=== PATIENT | female | born 1975 | race Caucasian/White ===

== ENCOUNTER → 2023-09-08 | Outpatient (CLI) | payer OTHER, SELFPAY ==
[2023-09-08 09:07] LABS: Absolute Lymphocyte Count 2.65 X10^3/uL (0.83-4.51); Basophil# 0.09 X10^3/uL; Basophil% 1.4 % (0-1); Eosinophil# 0.13 X10^3/uL; Hemoglobin 12.9 g/dL (12.0-15.0); Lymphocyte # 2.65 X10^3/ul (0.83-4.51); Lymphocyte % 41.4 % (19-41); Mean Corp Hgb Conc 32.3 g/dL (32-36); Mean Corpuscular Volume 89.9 fL (81-99); Mean Platelet Vol. 10.2 fl (6.2-12.0); Monocyte% 7.8 % (0-10); NRBC Flagged by Analyzer 0 % (0-5); Neutrophil # 3.02 X10^3/uL (2.7-7.7); Neutrophil % 47.2 % (47-70); Platelet Count 321 K/mm3 (150-450); RBC Distribution Width CV 11.9 % (11.6-14.6); RBC Distribution Width SD 39.4 fl (35.1-43.9); Red Blood Count 4.45 M/mm3 (4.2-5.4); White Blood Count 6.4 K/mm3 (4.4-11.0)
[2023-09-08 09:39] LABS: Thyroid Stim Hormone (TSH) 1.41 uIU/mL (0.358-3.74)
== END | disposition home or self-care (01) ==
PROVIDERS: Referring Provider Obstetrics & Gynecology; Visit Provider Obstetrics & Gynecology
DX: Z13.29 Encounter for screening for other suspected endocrine disorder (principal); N93.9 Abnormal uterine and vaginal bleeding, unspecified
CPT/HCPCS: 36415; 84443; 85025

== ENCOUNTER → 2023-09-09 | Outpatient (CLI) | payer OTHER, SELFPAY ==
--- NOTE | 2023-09-09 12:53 | US_ITS ---
STUDY: ULTRASOUND OF THE FEMALE PELVIS - COMPLETE REASON FOR EXAM: Female, 48 years old. AUB LMP: August 20, 2023. TECHNIQUE: Transabdominal and Transvaginal TECHNICAL QUALITY: Adequate. COMPARISON: None. FINDINGS: The uterus is anteverted and is in a midline position. The uterus measures 9.5 cm x 5.5 cm x 4.6 cm. Normal uterine cervix. The endometrium measures 7.1 mm in thickness, and is hyperechoic. There is no demonstrated endometrial mass. The myometrium is of heterogeneous echotexture suggesting fibroid change although no focal fibroid is seen. I.U.D. - The patient does not have an I.U.D. The right ovary is visualized. The right ovary measures 2.4 cm x 2.2 cm x 1.7 cm. There is no right ovarian cyst or ovarian mass. There is no visualized right adnexal mass or complex lesion. There is normal arterial and normal venous vascularity. The left ovary is visualized. The left ovary measures 2.8 cm x 2.7 cm x 2.5 cm. There is a 2.4 cm x 2.3 cm x 2.2 cm simple cyst in the ovary. There is no visualized left adnexal mass or complex lesion. There is normal arterial and normal venous vascularity. There is no fluid in the cul-de-sac. US/Transvaginal Non- IMPRESSION: Heterogeneous appearance of the myometrium suggestive of fibroid change although no focal fibroid is seen. 2.4 cm x 2.3 cm x 2.2 cm left ovarian cyst. Electronically Signed: Robin Mckeon MD at 15:26 EST ,
== END | disposition home or self-care (01) ==
PROVIDERS: Referring Provider Obstetrics & Gynecology; Visit Provider Obstetrics & Gynecology
DX: N93.9 Abnormal uterine and vaginal bleeding, unspecified (principal)
CPT/HCPCS: 76830; 76856

== ENCOUNTER → 2023-09-21 | Outpatient (CLI) | payer OTHER, SELFPAY ==
--- NOTE | 2023-09-21 11:02 | EMB_PTH ---
PATHOLOGY RESULTS PATIENT: STEVEN REAL LOC: [facility] U#:[id number] AGE/SX: 48/F ROOM: RE09/21/[address]: Dr. Gay Mcfarlane MD : 1975 BED: DIS: 09/21/2023 SPEC #: [id number] RECD: 09/22/23 08:30 STATUS: KARLA SAMAN #: [id number] FRED: 09/21/23 11:[address]: Gay Mcfarlane DEPT: SURGICAL PATHOLOGY RECD BY: Courtney Judge ENTERED: 09/22/23 08:30 SP TYPE: ENDOM BX/C TESSA DR: No Primary Care Phys Tissues: Endometrium, NOS Procedures: Surgery Specimen Level IV HEADER OPERATION: Endometrial biopsy PRE-OP DIAGNOSIS: Abnormal uterine bleeding TISSUE SUBMITTED: Endometrial lining MICROSCOPIC DIAGNOSIS Endometrium, biopsy: Weakly proliferative to inactive endometrium. AM:dimple 09/23/2023 MICROSCOPIC DESCRIPTION Slides are reviewed. GROSS DESCRIPTION Received is one container labeled with the patient's name and not further designated. The specimen consists of multiple irregular fragments of wolff mucoid tissue mixed with blood clot that in aggregate measure 3.0 x 2.5 x 0.3 cm. The specimen is totally submitted in one cassette. / SJ:dimple 09/22/2023 TC:5 CPT: 71721
--- OUTSIDE RECORDS SUMMARY | 2023-09-21 17:42 | XMS RPT_ITS | CCD ---
Author Name Unknown Address [address] [place] [address] Organization [facility] Care Team Providers Care Forklift Driver Name Role Phone Frida Artis Unavailable Unavailable Frida Artis Unavailable Unavailable Pj, Mohini D Unavailable Unavailable Frida Artis Unavailable Unavailable Wake, Mohini D Unavailable Unavailable Wake, Mohini D Unavailable Unavailable Pj, Mohini D Unavailable Unavailable Pj, Mohini D Unavailable Unavailable Pj, Mohini D Unavailable Unavailable Wake, Mohini D Unavailable Unavailable Pj, Mohini D Unavailable Unavailable Wake, Mohini D Unavailable Unavailable Pj, Mohini D Unavailable Unavailable Pj, Mohini D Unavailable Unavailable Dew, Sergio Unavailable Unavailable Pj, Mohini D Unavailable Unavailable Trung, Bull L Unavailable Unavailable Pj, Mohini D Unavailable Unavailable Unavailable Unavailable Dew WATER TAXI DRIVER, Sergio Unavailable Unavailable Pj, Mohini D Unavailable Unavailable Trung, Bull L Unavailable Unavailable Luecht PT, Misha Unavailable Unavailable Bowling WATER TAXI DRIVER, Juan Unavailable Unavailable Unavailable Unavailable Wake, Mohini D Unavailable Yahaira Mixon Unavailable Dr. Connie Etienne Referring Unavailable Oral Eve Clark Primary Care Unavailable Lowell, Dr. Rosales Admitting Unavailable Sippey, Dr. Rosales Attending Unavailable Pj, Ms. Mohini D Primary Care Unavailable Frida Artis Attending Unavailable Frida Artis Referring Unavailable Unavailable Unavailable Oral Eve Clark Primary Care Unavailable FRIDA ARTIS Referring Unavailable FRIDA ARTIS Attending Unavailable Oral Eve Clark Primary Care Unavailable Oral Eve Clark Referring Unavailable Oral Eve Clark Attending Unavailable Oral, Eve Yahairajenn Clark Primary Care Unavailable FRIDA ARTIS Attending Unavailable Allergies Allergy Classification Reported Allergen(s) Allergy Type Date of Onset Reaction(s) Facility Macrolides (antibiotic) (1 source) Erythromycin; Translations: [erythromycin] Drug Allergy Gatrointestinal upset [address] Work Phone: (18 sources) Erythromycin; Translations: [erythromycin] Drug Allergy Gatrointestinal upset [facility] Repository (1 source) No Known Medication Allergies; Translations: [No Known Medication Allergies] Propensity to adverse reactions to drug (disorder) [facility] Repository Medications Completed/Discontinued Medications Medication Drug Class(es) Dates Sig (Normalized) Sig (Original) drospirenone / Ethinyl Estradiol (14 sources) Progestin, Estrogen Start: 04-14-2021 take 1 tablet by mouth once daily Drospirenone-Ethi nyl Estradiol 3-0.03 MG Oral Tablet TAKE 1 TABLET DAILY. 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; Translations: [Other specified congenital malformations of intestine] Onset: 08-24-2022 Chronic Menstrual disorders (14 sources) Menometrorrhagia; Translations: [Excessive or frequent menstruation] Chronic Other non-traumatic joint disorders (16 sources) Shoulder pain; Translations: [Pain in joint, shoulder region] Episodic Other non-traumatic joint disorders (2 sources) Pain in right shoulder; Translations: [Right shoulder pain] Episodic Other and delivery including normal (13 sources) Delivery normal; Translations: [Normal delivery] Episodic Past or Other Problems Problem Classification Problem Date Documented Da te Episodic/Chronic Residual codes; unclassified (1 source) Family history of malignant neoplasm of digestive organs; Translations: [Family history of malignant neoplasm of digestive organs] Onset: 08-24-2022 Episodic Unclassified (13 sources) Finding of menstrual bleeding; Translations: [Menstruation] Results Test Name Value Interpretation Reference Range Facil ity Vital Signs Date Time Vital Sign Value Performing Clinician Dean lester 06-07-2023 08:31-0400 Body height 167.64 cm Yahaira Mixon Work Phone: [address] Work Phone: 06-07-2023 08:31-0400 Body mass index (BMI) [Ratio] 26.95 kg/m2 Yahaira Mixon Work Phone: [address] Work Phone: 06-07-2023 08:31-0400 Body surface area Derived from formula 1.85 m2 Yahaira Mixon Work Phone: [address] Work Phone: 06-07-2023 08:31-0400 Body weight 75.75 kg Yahaira Mixon Work Phone: [address] Work Phone: 06-07-2023 08:31-0400 Diastolic blood pressure 72 mm[Hg] Yahaira Mixon Work Phone: [address] Work Phone: 06-07-2023 08:31-0400 Systolic blood pressure 124 mm[Hg] Yahaira Mixon Work Phone: [address] Work Phone: 07-22-2022 08:36-0400 Body height 167.64 cm Yahaira Mixon Work Phone: [facility] 205 DO Work Phone: 07-22-2022 08:36-0400 Body mass index (BMI) [Ratio] 24.89 kg/m2 Yahaira Mixon Work Phone: [facility] 205 DO Work Phone: 07-22-2022 08:36-0400 Body surface area Derived from formula 1.79 m2 Yahaira Mixon Work Phone: [facility] 205 DO Work Phone: 07-22-2022 08:36-0400 Body weight 69.94 kg Yahaira Mixon Work Phone: [facility] 205 DO Work Phone: 07-22-2022 08:36-0400 Diastolic blood pressure 60 mm[Hg] Yahaira Mixon Work Phone: [facility] 205 DO Work Phone: 07-22-2022 08:36-0400 Heart rate 70 /min Yahaira Mixon Work Phone: [facility] 205 DO Work Phone: 07-22-2022 08:36-0400 SaO2% (BldA) [Mass fraction] 99 % Yahaira Mixon Work Phone: [facility] 205 DO Work Phone: 07-22-2022 08:36-0400 Systolic blood pressure 100 mm[Hg] Yahaira Mixon Work Phone: [facility] 205 DO Work Phone: 05-26-2022 13:58-0400 Body height 167.64 cm Mohini Oliva Work Phone: [place] [address] [employer] Work Phone: 05-26-2022 13:58-0400 Body mass index (BMI) [Ratio] 24.73 kg/m2 Mohini Starks Pj Work Phone: [place] [address] [employer] Work Phone: 05-26-2022 13:58-0400 Body surface area Derived from formula 1.79 m2 Mohini Mancinitie Work Phone: [place] [address] [employer] Work Phone: 05-26-2022 13:58-0400 Body weight 69.5 kg Mohini Oliva Work Phone: Ernie [place] Work Phone: 05-26-2022 13:58-0400 Diastolic blood pressure 66 mm[Hg] Mohini Oliva Work Phone: Ernie [place] Work Phone: 05-26-2022 13:58-0400 Systolic blood pressure 116 mm[Hg] Mohini Oliva Work Phone: Ernie [place] Work Phone: 05-23-2021 11:03-0400 Body height 167.64 cm Mohini Modi [place] Work Phone: 05-23-2021 11:03-0400 Body mass index (BMI) [Ratio] 25.37 kg/m2 [facility] [place] Work Phone: 05-23-2021 11:03-0400 Body surface area Derived from formula 1.81 m2 [facility] [place] [place] Work Phone: 05-23-2021 11:03-0400 Body temperature 96.9 [degF] [facility] [place] Work Phone: 05-23-2021 11:03-0400 Body weight 71.3 kg Mohini Liang [place] Work Phone: 05-23-2021 11:03-0400 Diastolic blood pressure 68 mm[Hg] [facility] [place] Work Phone: 05-23-2021 11:03-0400 Systolic blood pressure 112 mm[Hg] [facility]ini [facility]iva [facility] [place] Work Phone: 04-04-2020 17:39-0400 BMI (Body Mass Index) 27.6 kg/m2 Sergio MULLEN [facility] Work Phone: 04-04-2020 17:39-0400 Body Temperature 98.6 [degF] [facility] Work Phone: 04-04-2020 17:39-0400 Body weight 77.56 [facility] Work Phone: 04-04-2020 17:39-0400 BP Diastolic 72 mm[Hg] [facility] Work Phone: Encounters Encounter Date Encounter Type Care Provider Facility Start: 06-07-2023 Periodic preventive med est patient 40-64yrs Yahaira K Oral [facility] Work Phone: Start: 06-07-2023 ambulatory Ms. Yahaira Mixon Fac ility:[facility] Start: 04-19-2023 AUDIT Yahaira John Oral [facility] Work Phone: Start: 08-24-2022 End: 08-24-[address] Connie Etienne Facility:[id number] Start: 07-23-2022 Chart Update Yahaira John Oral Work Phone: [facility] 205 DO Work Phone: Start: 07-22-2022 Periodic preventive med est patient 40-64yrs Yahaira Lopez Oral Work Phone: [facility] 205 DO Work Phone: Start: 07-22-2022 ambulatory Ms. Yahaira Mixon Fac ility:[id number] Start: 06-05-2022 Chart Update Mohini george Work Phone: [facility] Work Phone: Start: 06-02-2022 Chart Update Mohini george Work Phone: [facility] [address] [place] Work Phone: Start: 06-01-2022 ambulatory Ms. Mohini Oliva Fac ility:[id number] Start: 05-26-2022 Periodic preventive med est patient 40-64yrs Mohini Oliva Work Phone: [facility] [address] [place] Work Phone: Start: 03-30-2022 AUDIT Mohini george Work Phone: [facility] [address] [place] Work Phone: Start: 12-16-2021 Image Encounter Mohini Oliva kekez D O NOT USE - [facility] Only Start: 06-02-2021 Chart Update Mohini Oliva [facility] [address] [place] Work Phone: Start: 05-30-2021 Chart Update Mohini Oliva [facility] [address] [place] Work Phone: Start: 05-28-2021 AUDIT Mohini Oliva [facility] [address] [place] Work Phone: Start: 05-23-2021 Periodic preventive med est patient 40-64yrs Mohini Oliva [facility] [address] [place] Work Phone: Start: 04-14-2021 AUDIT Mohini Oliva [facility] [address] [place] Work Phone: Start: 06-06-2020 Patient encounter procedure Juan Austin WATER TAXI DRIVER [facility] Work Phone: Start: 06-05-2020 Patient encounter procedure Juan Austin WATER TAXI DRIVER [facility] Work Phone: Start: 05-31-2020 Patient encounter [facility] Work Phone: Start: 05-29-2020 Patient encounter procedure Misha Rodriguez PT [facility] [place] Work Phone: Start: 05-22-2020 Patient encounter procedure Misha Newsomet PT [facility] [place] Work Phone: Start: 05-17-2020 Patient encounter procedure Misha Newsomet PT [facility] [place] Work Phone: Start: 05-15-2020 Patient encounter procedure Misha Newsomet PT [facility] [place] Work Phone: Start: 05-13-2020 Patient encounter procedure Misha Newsomet PT [facility] [place] Work Phone: Start: 05-10-2020 Patient encounter procedure Misha Newsomet PT [facility] [place] Work Phone: Start: 05-08-2020 Patient encounter procedure Misha Newsomet PT [facility] [place] Work Phone: Start: 05-06-2020 Patient encounter procedure Misha Newsomet PT [facility] [place] Work Phone: Start: 05-03-2020 Patient encounter procedure Misha Newsomet PT [facility] [place] Work Phone: Start: 05-01-2020 Patient encounter procedure Misha Newsomet PT [facility] [place] Work Phone: Start: 04-29-2020 Patient encounter procedure Sergio Dew [facility] [place] Work Phone: Start: 04-26-2020 Patient encounter procedure Sergio Dew [facility] [place] Work Phone: Start: 04-24-2020 Patient encounter procedure Sergio Dew [facility] [place] Work Phone: Start: 04-17-2020 Patient encounter procedure Sergio Dew [facility] [place] Work Phone: Start: 04-04-2020 Patient encounter procedure Sergio Rosa [facility] Work Phone: Start: 09-02-2018 End: 09-03-2018 Patient encounter procedure Frida Artis Facility:[facility] Start: 02-15-2018 End: 02-16-2018 Patient encounter procedure Mohini Oliva Facility:[facility] Start: 02-02-2018 End: 02-03-2018 Patient encounter procedure Mohini Oliva Facility:[facility] Cancer cervix - screening done Mohini Oliva [facility] [address] [place] Work Phone: Procedures Date Procedure Procedure Detail Performing Clinician Start: 08-24-2022 Colonoscopy Yahaira potts Work Phone: Plan of Treatment Date Care Activity Detail Author Start: 07-21-2023 EPV, Provider: Yahaira Mixon, Status: Pen, Time: 9:00 AM EPV, Provider: Yahaira Mixon, Status: Pen, Time: 9:00 AM [facility] 205 DO Work Phone: Start: 05-28-2023 Patient encounter procedure ANNUAL, Provider: Frida Artis, Status: Pen, Time: 2:00 PM [facility] [address] [place] Work Phone: Start: 05-26-2022 Patient encounter procedure ANNUAL, Provider: Frida Artis, Status: Pen, Time: 2:00 PM [facility] [address] [place] Work Phone: Start: 05-23-2021 Patient encounter procedure ANNUAL, Provider: Frida Artis, Status: Pen, Time: 10:45 AM [facility] [address] [place] Work Phone: [facility] Work Phone: NEGATED: Highlighted row has been ruled out! Planned Goals not documented [facility] Work Phone: Immunizations Immunization Date Immunization Notes Care Provider Ramila shaw 09-16-2021 Moderna COVID-19 Vac cine 100 MCG/0.5ML Intramuscular Suspension Yahaira Mixon Work Phone: [facility] 205 DO Work Phone: 10-14-2020 Moderna COVID-19 Vac cine 100 MCG/0.5ML Intramuscular Suspension Yahaira Mixon Work Phone: [facility] 205 DO Work Phone: 09-17-2020 Moderna COVID-19 Vac cine 100 MCG/0.5ML Intramuscular Suspension Yahaira Mixon Work Phone: [facility] 205 DO Work Phone: 05-23-2010 tetanus toxoid, redu claudia diphtheria toxoid, and acellular pertussis vaccine, adsorbed Yahaira Mixon Work Phone: [facility] 205 DO Work Phone: Payers Date Payer Category Payer Unknown [id number] 2018 Unknown 1977 Unknown [id number] [id number] [id number] 1977 Unknown [id number] 2.16.84 [id number] 1977 Unknown [id number] 2.16.84 [id number] 1977 Unknown [id number] 2.16.8 [id number] 1977 Unknown [id number] 2.16.8 [id number] 1977 Unknown [id number] 2.16. [id number] 1977 Unknown [id number] 2.16. [id number] 1977 Unknown [id number] 2.16. [id number] Self-pay Social History Date Type Detail Facility Never a smoker Never a smoker [facility] [address] [place] Work Phone: NEGATED: Highlighted row - [facility] Work Phone: Functional Status Date Assessment Result Facility NEGATED: Highlighted row Functional performance Functional status health issues are not documented Disease [facility] Work Phone: Mental Status Date Assessment Result Facility NEGATED: Highlighted row Cognitive function [Interpretation] Cognitive status health issues are not documented Disease [facility] Work Phone: Clinical Note 06-07-2023 Note Date & Type Note Facility 06-07-2023 Note 61 Date of Procedure: 06/07/2023 Pathologist: [facility], Cytology Date Reported: 06/24/2023 Date Received: 06/07/2023 Submitting Physician: FRIDA ARTIS MD Attending Physician: FRIDA ARTIS MD FINAL CYTOLOGICAL INTERPRETATION A. THINPREP PAP CERVICAL: Specimen adequacy: SATISFACTORY FOR EVALUATION. Quality Indicator: Endocervical/transformation zone component is present. General Categorization: NEGATIVE FOR INTRAEPITHELIAL LESION OR MALIGNANCY. Descriptive Interpretation: ENDOMETRIAL CELLS PRESENT THAT CORRELATE WITH THE MENSTRUAL HISTORY PROVIDED. Ancillary Testing: Specimen does not meet the requisition-stated criteria for HPV testing. See Pap test interpretation above. This specimen has been analyzed by the ThinPrep Imaging System ([employer] an automated imaging and review system, which assists the laboratory in evaluating cells on ThinPrep Pap tests. Following automated imaging, selected saucedo from every slide were reviewed by a explosive ordnance disposal manager and/or pathologist. Electronically Signed Out By [facility], Cytology//ELIZONDO/OSMAN By the signature on this report, the individual or group listed as making the Final Interpretation/Diagnosis certifies that they have reviewed this case. Diagnostic interpretation performed at [facility] [address] [facility] [address] Educational Note: Cervical cytology is a screening procedure primarily for squamous cancers and precursors and has associated false-negative and false-positive results as evidenced by published data. Your patient?s test should be interpreted in this context, together with patient?s history and clinical findings. Regular sampling and follow-up of unexplained clinical signs and symptoms are recommended to minimize false negative results. Clinical History Date of Last Menstrual Period: 06-02-23 Other Clinical Conditions: HPV Reflex for ASC-US only - Include HPV Genotype Clinical Diagnosis History: Encounter for Papanicolaou smear of cervix - (Z12.4) Source of Specimen A: THINPREP PAP CERVICAL [facility] Department of Pathology [id number] History and physical note 08-24-2022 Note Date & Type Note Facility 08-24-2022 Note History of Present I llness: /Lactating: Are You no Are You Currently Breastfeedingno Admission Reason: Colon cancer screening HPI: STEVEN AUGUSTIN is a 47 year old Female seen at the request of NANCY Soliman, for colon cancer screening. Her paternal grandmother had colon cancer diagnosed around age 70. She has never had a colonoscopy. She denies any blood in the stool or dark black bowel movements. She is not on any blood thinners or antiplatelet agents. She denies any abdominal pain. She has no change in her bowel movements. She has bowel movements daily. She is not on any stool softeners, fiber supplements, or laxatives. Family History: Family History: Medical History: Menorrhagia Surgical History: None Family History: Grandparent with colon cancer. Social History: Non-smoker ROS: Constitutional: no fever, sweats, and chills Cardiovascular: No chest pain Respiratory: No cough or shortness of breath Gastrointestinal: No change in bowel habits, no blood in the stool Genitourinary: no dysuria Musculoskeletal: no weakness or swelling Integumentary: no rashes Neurological: no confusion Endocrine: no heat or cold intolerance Heme/Lymph: no easy bruising or bleeding Allergies: No Known Allergies: Intolerances: erythromycin: Nausea/Vomiting Medications Prior to Admission: Admission Medication Reconciliation has not been completed for this patient. Objective: Physical Exam by System: Constitutional: NAD Eyes: no scleral icterus Respiratory/Thorax: no labored breathing Cardiovascular: NSR Gastrointestinal: soft, non-distended Musculoskeletal: full range of motion Extremities: no peripheral edema Neurological: alert, oriented x3 Psychological: normal affect Skin: no jaundice Assessment and Plan: Assessment: Ms. Augustin is a 47-year-old female with family history of colon cancer (grandparent) in need of colon cancer screening. We discussed risks and benefits of screening colonoscopy. This included risk of bleeding, perforation, missed polyps, and potential need for additional procedures pending findings. She was agreeable to proceed. Electronic Signatures: Connie Etienne) (Signed 24-Aug-2022 07:40) Authored: History of Present Illness, Comorbidities, Family History, Allergies, Medications Prior to Admission, Objective, Assessment and Plan, Note Completion Last Updated: 24-Aug-2022 07:40 by Connie Etienne) [facility] History of Present illness Narrative Note Date & Type Note Facility History of Present illness Narrative Presents for annual exam. She voices no complaints and is doing well. Denies any bowel or bladder problems. Denies any breast problems. [employer] Work Phone: History of Present illness Narrative Note Date & Type Note Facility History of Present illness Narrative Presents for annual exam. She voices no complaints and is doing well. Denies any bowel or bladder problems. Denies any breast problems. She is doing well on the control pills. [employer] Work Phone: History of Present illness Narrative Note Date & Type Note Facility History of Present illness Narrative 47 year old female here to establish care. She has no concerns today. Previous patient of Vinod Meyers Hx:Tobacco: DeniesETOH:Caffeine: coffeeHealth maintenance:Wellness labs: needsPap: gets done yearly with Dr. Caputoogram: [place] cancer screen: needs; has family history of colon cancer in paternal grandmother -[facility] [address] Work Phone: History of Present illness Narrative Note Date & Type Note Facility History of Present illness Narrative Presents for annual exam. She voices no complaints and is doing well. Denies any bowel or bladder problems. Denies any breast problems. She is doing well on the control pills. [employer] Work Phone: Instructions Note Date & Type Note Facility [facility] Work Phone: Instructions Note Date & Type Note Facility [facility] Work Phone: Instructions Note Date & Type Note Facility [facility] Work Phone: Summary Purpose Family History No Family History Records Found Grandparent Name Dates Details Family history of hypothyroi dism(V18.19, Z83.49) Status:Active Family history of malignant neoplasm of colon(V16.0, Z80.0) Status:Active Family history of malignant neoplasm of stomach(V16.0, Z80.0) Status:Active aunt Name Dates Details Family history of hypothyroi dism(V18.19, Z83.49) Status:Active Mother Name Dates Details Family history of hypothyroi dism(V18.19, Z83.49) Status:Active Father Name Dates Details Family history of hypertensi on(V17.49, Z82.49) Status:Active Family history of hyperlipid emia(V18.19, Z83.438) Status:Active Unknown Family Member Name Dates Details Family history of hypothyroi dism: Mother, Grandparent, Aunt(V18.19, Z83.49) Status:Active Family history of malignant neoplasm of colon: Grandparent(V16.0, Z80.0) Status:Active Family history of malignant neoplasm of stomach: Grandparent(V16.0, Z80.0) Status:Active Family history of hypertensi on: Father(V17.49, Z82.49) Status:Active Family history of hyperlipid emia: Father(V18.19, Z83.438) Status:Active Unknown Family Member Name Dates Details Family history of hypothyroi dism: Mother, Grandparent, Aunt(V18.19, Z83.49) Status:Active Family history of malignant neoplasm of colon: Grandparent(V16.0, Z80.0) Status:Active Family history of malignant neoplasm of stomach: Grandparent(V16.0, Z80.0) Status:Active Family history of hypertensi on: Father(V17.49, Z82.49) Status:Active Family history of hyperlipid emia: Father(V18.19, Z83.438) Status:Active Unknown Family Member Name Dates Details Family history of hypothyroi dism: Mother, Grandparent, Aunt(V18.19, Z83.49) Status:Active Family history of malignant neoplasm of colon: Grandparent(V16.0, Z80.0) Status:Active Family history of malignant neoplasm of stomach: Grandparent(V16.0, Z80.0) Status:Active Family history of hypertensi on: Father(V17.49, Z82.49) Status:Active Family history of hyperlipid emia: Father(V18.19, Z83.438) Status:Active Unknown Family Member Name Dates Details Family history of hypothyroi dism: Mother, Grandparent, Aunt(V18.19, Z83.49) Status:Active Family history of malignant neoplasm of colon: Grandparent(V16.0, Z80.0) Status:Active Family history of malignant neoplasm of stomach: Grandparent(V16.0, Z80.0) Status:Active Family history of hypertensi on: Father(V17.49, Z82.49) Status:Active Family history of hyperlipid emia: Father(V18.19, Z83.438) Status:Active Unknown Family Member Name Dates Details Family history of hypothyroi dism: Mother, Grandparent, Aunt(V18.19, Z83.49) Status:Active Family history of malignant neoplasm of colon: Grandparent(V16.0, Z80.0) Status:Active Family history of malignant neoplasm of stomach: Grandparent(V16.0, Z80.0) Status:Active Family history of hypertensi on: Father(V17.49, Z82.49) Status:Active Family history of hyperlipid emia: Father(V18.19, Z83.438) Status:Active Grandparent Name Dates Details Family history of hypothyroi dism(V18.19, Z83.49) Status:Active Family history of malignant neoplasm of colon(V16.0, Z80.0) Status:Active Family history of malignant neoplasm of stomach(V16.0, Z80.0) Status:Active aunt Name Dates Details Family history of hypothyroi dism(V18.19, Z83.49) Status:Active Mother Name Dates Details Family history of hypothyroi dism(V18.19, Z83.49) Status:Active Father Name Dates Details Family history of hypertensi on(V17.49, Z82.49) Status:Active Family history of hyperlipid emia(V18.19, Z83.438) Status:Active Grandparent Name Dates Details Family history of hypothyroi dism(V18.19, Z83.49) Status:Active Family history of malignant neoplasm of colon(V16.0, Z80.0) Status:Active Family history of malignant neoplasm of stomach(V16.0, Z80.0) Status:Active aunt Name Dates Details Family history of hypothyroi dism(V18.19, Z83.49) Status:Active Mother Name Dates Details Family history of hypothyroi dism(V18.19, Z83.49) Status:Active Father Name Dates Details Family history of hypertensi on(V17.49, Z82.49) Status:Active Family history of hyperlipid emia(V18.19, Z83.438) Status:Active Grandparent Name Dates Details Family history of hypothyroi dism(V18.19, Z83.49) Status:Active Family history of malignant neoplasm of colon(V16.0, Z80.0) Status:Active Family history of malignant neoplasm of stomach(V16.0, Z80.0) Status:Active aunt Name Dates Details Family history of hypothyroi dism(V18.19, Z83.49) Status:Active Mother Name Dates Details Family history of hypothyroi dism(V18.19, Z83.49) Status:Active Father Name Dates Details Family history of hypertensi on(V17.49, Z82.49) Status:Active Family history of hyperlipid emia(V18.19, Z83.438) Status:Active Unknown Family Member Name Dates Details Family history of hypothyroi dism: Mother, Grandparent, Aunt(V18.19, Z83.49) Status:Active Family history of malignant neoplasm of colon: Grandparent(V16.0, Z80.0) Status:Active Family history of malignant neoplasm of stomach: Grandparent(V16.0, Z80.0) Status:Active Family history of hypertensi on: Father(V17.49, Z82.49) Status:Active Family history of hyperlipid emia: Father(V18.19, Z83.438) Status:Active Unknown Family Member Name Dates Details Family history of hypothyroi dism: Mother, Grandparent, Aunt(V18.19, Z83.49) Status:Active Family history of malignant neoplasm of colon: Grandparent(V16.0, Z80.0) Status:Active Family history of malignant neoplasm of stomach: Grandparent(V16.0, Z80.0) Status:Active Family history of hypertensi on: Father(V17.49, Z82.49) Status:Active Family history of hyperlipid emia: Father(V18.19, Z83.438) Status:Active Unknown Family Member Name Dates Details Family history of hypothyroi dism: Mother, Grandparent, Aunt(V18.19, Z83.49) Status:Active Family history of malignant neoplasm of colon: Grandparent(V16.0, Z80.0) Status:Active Family history of malignant neoplasm of stomach: Grandparent(V16.0, Z80.0) Status:Active Family history of hypertensi on: Father(V17.49, Z82.49) Status:Active Family history of hyperlipid emia: Father(V18.19, Z83.438) Status:Active Unknown Family Member Name Dates Details Family history of hypothyroi dism: Mother, Grandparent, Aunt(V18.19, Z83.49) Status:Active Family history of malignant neoplasm of colon: Grandparent(V16.0, Z80.0) Status:Active Family history of malignant neoplasm of stomach: Grandparent(V16.0, Z80.0) Status:Active Family history of hypertensi on: Father(V17.49, Z82.49) Status:Active Family history of hyperlipid emia: Father(V18.19, Z83.438) Status:Active Unknown Family Member Name Dates Details Family history of hypothyroi dism: Mother, Grandparent, Aunt(V18.19, Z83.49) Status:Active Family history of malignant neoplasm of colon: Grandparent(V16.0, Z80.0) Status:Active Family history of malignant neoplasm of stomach: Grandparent(V16.0, Z80.0) Status:Active Family history of hypertensi on: Father(V17.49, Z82.49) Status:Active Family history of hyperlipid emia: Father(V18.19, Z83.438) Status:Active Unknown Family Member Name Dates Details Family history of hypothyroi dism: Mother, Grandparent, Aunt(V18.19, Z83.49) Status:Active Family history of malignant neoplasm of colon: Grandparent(V16.0, Z80.0) Status:Active Family history of malignant neoplasm of stomach: Grandparent(V16.0, Z80.0) Status:Active Family history of hypertensi on: Father(V17.49, Z82.49) Status:Active Family history of hyperlipid emia: Father(V18.19, Z83.438) Status:Active Unknown Family Member Name Dates Details Family history of hypothyroi dism: Mother, Grandparent, Aunt(V18.19, Z83.49) Status:Active Family history of malignant neoplasm of colon: Grandparent(V16.0, Z80.0) Status:Active Family history of malignant neoplasm of stomach: Grandparent(V16.0, Z80.0) Status:Active Family history of hypertensi on: Father(V17.49, Z82.49) Status:Active Family history of hyperlipid emia: Father(V18.19, Z83.438) Status:Active Unknown Family Member Name Dates Details Family history of hypothyroi dism: Mother, Grandparent, Aunt(V18.19, Z83.49) Status:Active Family history of malignant neoplasm of colon: Grandparent(V16.0, Z80.0) Status:Active Family history of malignant neoplasm of stomach: Grandparent(V16.0, Z80.0) Status:Active Family history of hypertensi on: Father(V17.49, Z82.49) Status:Active Family history of hyperlipid emia: Father(V18.19, Z83.438) Status:Active Unknown Family Member Name Dates Details Family history of hypothyroi dism: Mother, Grandparent, Aunt(V18.19, Z83.49) Status:Active Family history of malignant neoplasm of colon: Grandparent(V16.0, Z80.0) Status:Active Family history of malignant neoplasm of stomach: Grandparent(V16.0, Z80.0) Status:Active Family history of hypertensi on: Father(V17.49, Z82.49) Status:Active Family history of hyperlipid emia: Father(V18.19, Z83.438) Status:Active Advance Directives No Advanced Directives Records FoundNo Advanced Directives Records FoundNo Advanced Directives Records FoundNo Advanced Directives Records FoundNo Advanced Directives Records Found Chief Complaint Patient is here for her yearly exam and pap test. LMP: 05/13/2021. Patient does self breast exams and has no concerns at this time.Patient is here for her yearly exam and pap test. LMP: 05/06/22. Patient does self breast exams andhas no concerns at this time.Pt presents to establish new PCP; previous pt of Mohini Oliva CNP.PATIENT IS HERE FOR YEARLY EXAM AND PAP TEST. LMP: 06/02/23. PATIENT DOES SELF BREAST EXAMS AND HAS NO CONCERNS AT THIS TIME. Additional Source Comments INFORMATION SOURCE (unrecogn ized section and content) DATE CREATED AUTHOR AUTHOR'S ORGANIZ ATION 09/12/2018 [facility] DATE CREATED AUTHOR AUTHOR'S ORGANIZ ATION 12/23/2022 [facility] DATE CREATED AUTHOR AUTHOR'S ORGANIZ ATION 06/07/2023 [employer] DATE CREATED AUTHOR AUTHOR'S ORGANIZ ATION 06/27/2023 [facility] FOR RECORDS PERTAINING TO PATIENTS WHO ARE OR HAVE BEEN ENROLLED IN A CHEMICAL DEPENDENCY/SUBSTANCEABUSE PROGRAM, SOME INFORMATION MAY BE OMITTED. This clinical summary was aggregated from multiple sources. Caution should be exercised in using it in the provision of clinical care. This summary normalizes information from multiple sources, and as a consequence, information in this document may materially change the coding, format and clinical context of patient data. In addition, data may be omitted in some cases. CLINICAL DECISIONS SHOULD BE BASED ON THE PRIMARY CLINICAL RECORDS. [facility], [facility]. provides no warranty or guarantee of the accuracy or completeness of information in this document.
== END | disposition home or self-care (01) ==
LOC: LABSPEC 15:04
PROVIDERS: Referring Provider Obstetrics & Gynecology; Visit Provider Obstetrics & Gynecology
DX: N93.9 Abnormal uterine and vaginal bleeding, unspecified (principal)
CPT/HCPCS: 88305

== ENCOUNTER → 2024-02-09 | Outpatient (CLI) | payer OTHER, SELFPAY ==
[2024-02-09 08:37] LABS: Hematocrit 41.2 % (37-47); Hemoglobin 13.3 g/dL (12.0-15.0); Mean Corp Hgb Conc 32.3 g/dL (32-36); Mean Platelet Vol. 10.3 fl (6.2-12.0); Platelet Count 280 K/mm3 (150-450); RBC Distribution Width CV 12.5 % (11.6-14.6); RBC Distribution Width SD 41.1 fl (35.1-43.9); Red Blood Count 4.58 M/mm3 (4.2-5.4); White Blood Count 5.4 K/mm3 (4.4-11.0)
[2024-02-09 09:06] LABS: Vitamin D,25 Hydroxy 91.2 ng/mL
[2024-02-09 09:19] LABS: AST(SGOT) 13 U/L (15-37); Alanine Aminotransfer ALT/SGPT 21 U/L (13-56); Albumin, Serum 3.5 g/dL (3.2-5.0); Alkaline Phosphatase 86 U/L (45-117); Anion Gap 7 (5-15); BUN 13 mg/dL (7-18); BUN/Creat Ratio 15.5 RATIO (10-20); Calcium,Total 8.8 mg/dL (8.5-10.1); Chloride 107 mmol/L (98-107); Cholesterol 215 mg/dL (200); Creatinine, Serum 0.84 mg/dL (0.55-1.02); EST Glomerular Filtration Rate 78 mL/min (>60); Est Glom Filt Rate - Afr Amer 94 mL/min (>60); Globulin 3.6 g/dL (2.2-4.2); Glucose 90 mg/dL (74-106); High Density Lipoprotein 69 mg/dL; Potassium 3.7 mmol/L (3.5-5.1); Protein, Total 7.1 g/dL (6.4-8.2); Sodium Level 138 mmol/L (136-145); Thyroid Stim Hormone (TSH) 1.43 uIU/mL (0.358-3.74); Triglycerides 121 mg/dL; Very Low Density Lipoprotein 24 mg/dL (5-40)
== END | disposition home or self-care (01) ==
LOC: LAB 08:02
PROVIDERS: PCP Family Medicine; Referring Provider Family Medicine; Visit Provider Family Medicine
DX: Z00.00 Encounter for general adult medical examination without abnormal findings (principal); Z13.1 Encounter for screening for diabetes mellitus; Z13.220 Encounter for screening for lipoid disorders; N93.9 Abnormal uterine and vaginal bleeding, unspecified
CPT/HCPCS: 36415; 80053; 80061; 82306; 84443; 85027

== ENCOUNTER → 2024-10-23 | Outpatient (CLI) | payer OTHER, SELFPAY ==
[2024-10-27 16:08] LABS: HPV APTIMA, High Risk Negative (Negative)
== END | disposition home or self-care (01) ==
LOC: LABSPEC 16:12
PROVIDERS: PCP Family Medicine; Referring Provider Obstetrics & Gynecology; Visit Provider Obstetrics & Gynecology
DX: Z12.4 Encounter for screening for malignant neoplasm of cervix (principal)
CPT/HCPCS: 87624; 88175; G0145

== ENCOUNTER → 2024-12-07 | Outpatient (CLI) | payer OTHER, SELFPAY ==
--- NOTE | 2024-12-07 07:15 | BI_ITS ---
EXAM: SCRN MAMM (CAD)W/PARVEEN BILAT 12/07/2024 CLINICAL HISTORY: F, Age 49 y/o , SCREENING MAMMOGRAM TECHNIQUE: Bilateral screening digital breast tomosynthesis with 2D and 3D images. Computer aided detection. COMPARISON: Prior exam(s) dated 06/01/2022, 05/28/2021. FINDINGS: TISSUE DENSITY: The breast tissue is heterogenously dense, which may obscure small masses. The mammogram demonstrates that the patient has dense breasts. Supplemental screening with whole breast ultrasound or MRI may be considered for further evaluation. Bilateral Breast Mammographic Findings: No significant masses, calcifications or other abnormalities are identified. BI/SCRN MAMM (CAD)W/PARVEEN BILAT IMPRESSION: There is no mammographic evidence of malignancy. OVERALL FINAL ASSESSMENT: BIRADS 1 NEGATIVE. RECOMMENDATION: Routine annual follow-up in 1 Year A letter with findings and recommendations will be mailed to the patient. Reading Location: [id number]
== END | disposition home or self-care (01) ==
LOC: OPBI 07:12
PROVIDERS: PCP Family Medicine; Referring Provider Obstetrics & Gynecology; Visit Provider Obstetrics & Gynecology
DX: Z12.31 Encounter for screening mammogram for malignant neoplasm of breast (principal)
CPT/HCPCS: 77063; 77067

== ENCOUNTER 2025-02-14 07:56 | Outpatient (CLI) | payer OTHER, SELFPAY ==
[2025-02-14 12:45] LABS: Bilirubin, Direct 0.23 mg/dL (0.00-0.30)
[2025-02-16 13:08] LABS: Vitamin D 1,25-Dihydroxy 61.5 pg/mL (24.8-81.5)
== END 2025-02-14 23:59 | disposition home or self-care (01) ==
LOC: LAB 07:57
PROVIDERS: PCP Family Medicine; Referring Provider Family Medicine; Visit Provider Family Medicine
DX: Z00.00 Encounter for general adult medical examination without abnormal findings (principal); R53.83 Other fatigue; Z13.1 Encounter for screening for diabetes mellitus; Z13.220 Encounter for screening for lipoid disorders
CPT/HCPCS: 82248; 82652; 84439; 84443; 84481

== ENCOUNTER 2025-02-20 08:03 | Outpatient (CLI) | payer OTHER, SELFPAY ==
--- OUTSIDE RECORDS SUMMARY | 2025-02-20 08:35 | XMS RPT_ITS | CCD ---
Author Organization [facility] Care Team Providers Care Audit Practice Intern Name Role Phone Frida Artis Unavailable Unavailable SteffFrida R Unavailable Unavailable [place], Mohini D Unavailable Unavailable SteffFrida R Unavailable Unavailable Pj, Mohini D Unavailable Unavailable Pj, Mohini D Unavailable Unavailable Cleveland, Mohini D Unavailable Unavailable Pj, Mohini D Unavailable Unavailable Pj, Mohini D Unavailable Unavailable Cleveland, Mohini D Unavailable Unavailable Cleveland, Mohini D Unavailable Unavailable Pj, Mohini D Unavailable Unavailable Pj, Mohini D Unavailable Unavailable Pj, Mohini D Unavailable Unavailable Dew, Sergio Unavailable Unavailable Pj, Mohini D Unavailable Unavailable Trung, Bull L Unavailable Unavailable Cleveland, Mohini D Unavailable Unavailable Unavailable Unavailable Dew ASPARAGUS BUNCHER, Sergio Unavailable Unavailable Pj, Mohini D Unavailable Unavailable Trung, Bull L Unavailable Unavailable Luecht PT, Misha Unavailable Unavailable Bowling ASPARAGUS BUNCHER, Juan Unavailable Unavailable Unavailable Unavailable Pj, Mohini D Unavailable Yahaira Mixon Unavailable Dr. Connie Etienne Referring Unavailable Ms. Yahaira Mixon Primary Care Unavailable Dr. Connie Etienne Admitting Unavailable Dr. Connie Etienne Attending Unavailable Cleveland, Ms. Mohini D Primary Care Unavailable Frida Artis Attending Unavailable Frida Artis Referring Unavailable Unavailable Unavailable Ms. Yahaira Mixon Primary Care Unavailable FRIDA ARTIS Referring Unavailable FRIDA ARTIS Attending Unavailable Oral Eve Clark Primary Care Unavailable Oral Eve Clark Referring Unavailable Oral Eve Clark Attending Unavailable Oral Eve Yahairajenn Clark Primary Care Unavailable FRIDA ARTIS Attending Unavailable Dr. Gay Mcfarlane Attending Provider Care Physician, No Primary Primary Care Provider Unavailable Care Physician, No Primary Referring Provider Un available Phil MARADIAGA, Rahat Primary Care Provider Phil MARADIAGA, Rahat Referring Provider Denys MARADIAGA, Dr. Rashid Attending Provider Dr. Gay Mcfarlane MD Referring Provider [phone] Phil, Chalon Primary Care Unavailable Marcanthony, Gay Attending Unavailable Phil, Chalon Referring Unavailable Marcanthony, Gay Attending Unavailable Marcanthony, Gay Referring Unavailable Phil, Chalon Primary Care Unavailable Marcanthony, Gay Attending Unavailable Marcanthony, Gay Referring Unavailable Phil, Chalon Primary Care Unavailable Assessment, Health Risk Attending Unavaila ble Assessment, Health Risk Referring Unavaila ble Phil, Chalon Primary Care Unavailable Phil, Rahat Attending Unavailable Phil, Chalon Referring Unavailable Phil, Chalon Primary Care Unavailable Stalin Mauricio Attending Unavailable Phil, Chalon Primary Care Unavailable Phil, Chalon Referring Unavailable Phil, Chalon Primary Care Unavailable Rahat Villarreal MD Attending Provider Assessment, Health Risk Attending Provider Unava ilable Assessment, Health Risk Referring Provider Unava ilable Allergies Allergy Classification Reported Allergen(s) Allergy Type Date of Onset Reaction(s) Facility Macrolides (antibiotic) (1 source) Erythromycin; Translations: [erythromycin] Drug Allergy Gatrointestinal upset [address] Work Phone: (18 sources) Erythromycin; Translations: [erythromycin] Drug Allergy Gatrointestinal upset [facility] Repository (1 source) No Known Medication Allergies; Translations: [No Known Medication Allergies] Propensity to adverse reactions to drug (disorder) [facility] Medications Current Medications Medication Drug Class(es) Dates Sig (Normalized) Sig (Original) Multivitamin preparation (1 source) Start: 09-21-2023 take 1 tablet by mouth once daily Multivitamin Active 1 TABLET PO DAILY September 21, 2023 12:00am Multivitamin tablet (2 sources) Start: 09-21-2023 Multivitamin tablet Active 1 {tbl} PO DAILY September 21, 2023 1:00am Relugolix-Estradiol- Norethindr (5 sources) Start: 10-16-2024 Relugolix-Estradiol -Norethindr (Myf[place]) 40-1-0.5 mg tablet Active 1 {tbl} PO DAILY October 16, 2024 6:04pm Start: 09-21-2023 End: 10-16-2024 Bztvwlylu-Qwidvfyxz-Pzoqrxsr dr ([place]) 40-1-0.5 mg tablet Discontinued 1 {tbl} PO DAILY September 21, 2023 1:00am October 16, 2024 6:04pm Start: 09-21-2023 take 1 tablet by queenie th once daily Vthgjhida-Cdqimcyzt-Ddranhthej (Myfembre e) 40-1-0.5 mg tablet Active 1 TABLET PO DAILY September 21, 2023 12:00am Completed/Discontinued Medications Medication Drug Class(es) Dates Sig (Normalized) Sig (Original) benzonatate 200 mg oral capsule (2 sources) Non-narcotic Antitussive Start: 03-27-2024 End: 10-23-2024 take 1 capsule by mouth three times daily as needed for cough Benzonatate 200 mg capsule Discontinued 200 mg PO THREE TIMES A DAY as needed for cough March 27, 2024 12:00am October 23, 2024 3:15pm drospirenone / Ethinyl Estradiol (14 sources) Progestin, Estrogen Start: 04-14-2021 take 1 tablet by mouth once daily Drospirenone-Ethin yl Estradiol 3-0.03 MG Oral Tablet TAKE 1 TABLET DAILY. Quantity: 1 Refills: 3 Ordered: 07-Jun-2023 Frida Artis MD Start : 14-Apr-2021 Active Start: 04-14-2021 take 1 tablet by queenie th once daily Drospirenone-Ethinyl Estradiol 3-0.03 MG Oral Tablet TAKE 1 TABLET DAILY. Quantity: 1 Refills: 0 Ordered: 19-Apr-2023 Frida Artis MD Start : 14-Apr-2021 Active Start: 04-14-2021 take 1 tablet by queenie th once daily Drospirenone-Ethinyl Estradiol 3-0.03 MG Oral Tablet TAKE 1 TABLET DAILY. Quantity: 1 Refills: 11 Ordered: 26-May-2022 Friad Artis MD Start : 14-Apr-2021 Active Start: 04-14-2021 take 1 tablet by queenie th once daily Drospirenone-Ethinyl Estradiol 3-0.03 MG Oral Tablet TAKE 1 TABLET DAILY. Quantity: 1 Refills: 1 Ordered: 30-Mar-2022 Frida Artis MD Start : 14-Apr-2021 Active Start: 04-14-2021 take 1 tablet by queenie th once daily Drospirenone-Ethinyl Estradiol 3-0.03 MG Oral Tablet TAKE 1 TABLET DAILY. Quantity: 1 Refills: 12 Ordered: 14-Apr-2021 Frida Artis MD Start : 14-Apr-2021 Active Drospirenone-Estetrol (1 source) Start: 09-21-2023 End: 09-21-2023 take 25-28 tablets by mouth once daily Drospirenone-Estetrol Discontinued 0 PO .COMPLEX September 21, 2023 12:00am September 21, 2023 5:37pm take 1-PINK tablet once daily for 24 days/days 1-24 of cycle; take 1-WHITE tablet once daily for 4 days/days 25-28 of cycle. PO Drospirenone-Estetrol 3 mg- 14.2 mg (28) tablet (2 sources) Start: 09-21-2023 End: 09-21-2023 take 25-28 tablets by mouth once daily Drospirenone-Estetrol 3 mg- 14.2 mg (28) tablet Discontinued 0 PO .COMPLEX September 21, 2023 1:00am September 21, 2023 6:37pm take 1-PINK tablet once daily for 24 days/days 1-24 of cycle; take 1-WHITE tablet once daily for 4 days/days 25-28 of cycle. PO methylPREDNISolone 4 mg oral tablet (2 sources) Corticosteroid Start: 03-27-2024 End: 10-23-2024 take 1 tablet by mouth once Methylprednisolone (Medrol (Jeevan)) 4 mg tablets,dose pack Discontinued 0 PO per package directions March 27, 2024 12:00am October 23, 2024 3:15pm PO PER PKG DIR Multi Vitamin Oral Tablet (1 source) Multi Vitamin Or al Tablet Refills: 0 Active Multi Vitamin Oral Tablet (4 sources) Multi Vitamin Or al Tablet Quantity: 0 Refills: 0 Ordered: 03-Apr-2020 DO Active Multi Vitamin Or al Tablet Refills: 0 Active Problems Active Problems Problem Classification Problem Date Documented Date Episodic/Chronic 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; Translations: [Other specified congenital malformations of intestine] Onset: 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-2022 Chronic Menstrual disorders (14 sources) Menometrorrhagia; Translations: [Excessive or frequent menstruation] Chronic Other female genital disorders (7 sources) Abnormal uterine bleeding; Translations: [Abnormal uterine and vaginal bleeding, unspecified] 09-07-2023 Chronic Comment on above: stable on myfembree Other female genital disorders (2 sources) Abnormal uterine and vaginal bleeding, unspecified; Translations: [Unspecified disorders of menstruation and other abnormal bleeding from female genital tract] Onset: 10-23-2024 09-21-2023 Chronic Other non-traumatic joint disorders (16 sources) Shoulder pain; Translations: [Pain in joint, shoulder region] Episodic Other non-traumatic joint disorders (2 sources) Pain in right shoulder; Translations: [Right shoulder pain] Episodic Other and delivery including normal (13 sources) Delivery normal; Translations: [Normal delivery] Episodic Comment on above: 04/22/2001_40weeks 6 days_Female_7# 11oz10/_40weeks 1day_Female_7# 3oz04/05/2006_38weeks 2days_Male_7# 6oz; Other screening for suspected conditions (not mental disorders or infectious disease) (20 sources) Patient encounter status; Translations: [Screening for malignant neoplasms of cervix] Onset: 06-01-2022 Episodic Residual codes; unclassified (13 sources) H/O: miscarriage; Translations: [Personal history of other genital system and obstetric disorders] Episodic Comment on above: 1999; Residual codes; unclassified (13 sources) Past history of procedure; Translations: [Other specified personal history presenting hazards to health] Episodic Comment on above: 08/23/2017: WNL; Residual codes; unclassified (4 sources) Body mass index 20-24 - normal; Translations: [Body Mass Index between 19-24, adult] Episodic Past or Other Problems Problem Classification Problem Date Documented Da te Episodic/Chronic Residual codes; unclassified (1 source) Family history of malignant neoplasm of digestive organs; Translations: [Family history of malignant neoplasm of digestive organs] Onset: 08-24-2022 Episodic Unclassified (13 sources) Finding of menstrual bleeding; Translations: [Menstruation] Comment on above: Onset age 14 years; NEGATED: Highlighted row has not occurred!Residual codes; unclassified (20 sources) Disease Episodic Results Test Name Value Interpretation Reference Range Facility Vitamin D 1,25-Dihydroxyon 0 02-16-2025 VIT D 1,25 DIHY 61.5 pg/mL Normal 24.8-81.5 [facility] Comment on above: Order Comment: Order Date: 02/09/25Order Info: [id number] - [id number] Result Comment: Perf ormed at: - [facility] [address] [id number] Gameplay Programmer: Forest Ayala MD, Phone: [phone] Performed By: #### L 500.3518, L400.0100, L100.0200 #### [facility] [address] [place], [place], [address] Absolute lymphocyte countOrd ered By: HEALTH ASSESSMENT on 02-14-2025 Lymphocytes Auto (Unsp spec) [#/Vol] 2.12 10*3/uL 0.83-4.51 [facility] Absolute neutrophil countOrd ered By: HEALTH ASSESSMENT on 02-14-2025 Neutrophils (Bld) [#/Vol] 2.8 10*3/uL 2.0-7.7 [facility] Absolute nucleated red blood cell countOrdered By: HEALTH ASSESSMENT on 02-14-2025 Nucleated RBC (Bld) [#/Vol] 0.00 10*3/uL 0-5 [facility] Anion gap in Serum or Plasma Ordered By: HEALTH ASSESSMENT on 02-14-2025 Anion gap [Moles/Vol] 10 mmol/L 5- [facility] BUN/creatinine ratioOrdered By: HEALTH ASSESSMENT on 02-14-2025 Urea nitrogen/Creatinine [Mass ratio] 11.2 mg/mg 10-20 [facility] Bilirubin directOrdered By: Rahat Villarreal on 02-14-2025 Bilirubin.direct [Mass/Vol] 0.23 mg/dL 0.00-0.30 [facility] Bilirubin directOrdered By: HEALTH ASSESSMENT on 02-14-2025 Bilirubin.direct [Mass/Vol] 0.24 mg/dL 0.00-0.30 [facility] Bilirubin, Directon 02-15-20 Bilirubin.direct [Mass/Vol] 0.23 mg/dL Normal 0.00-0.30 [facility] Comment on above: Order Comment: Order Date: 02/09/25 Order Info: [id number] - CMP Order Info: [id number] - LIPID Order Info: [id number] - T3F Order Info: [id number] - TSH Order Info: [id number] - T4F Performed By: #### L 501.4700 #### [facility] [address] [place], [address] Bilirubin, totalOrdered By: HEALTH ASSESSMENT on 02-14-2025 Bilirubin [Mass/Vol] 0.66 mg/dL 0.00-1.30 [facility] Blood band neutrophil count as percentage of total leukocytesOrdered By: HEALTH ASSESSMENT on 02-14-2025 Band form neutrophils/100 WBC (Bld) 50.0 % 47-70 [facility] CBC W/Diff, Automatedon 01-19 Absolute Neut Normal 2.0-7.7 [facility] Comment on above: Order Comment: Order Date: 02/09/25 Order Info: [id number] - CBCD Result Comment: IN E MPH LABS Performed By: #### L 100.0100, L506.0400, L501.37816, L3300.0960, L501.9520 #### [facility] [address] [place], [address] HCT Normal 37-47 [facility] Comment on above: Order Comment: Order Date: 02/09/25 Order Info: [id number] - CBCD Result Comment: IN E MPH LABS Performed By: #### L 100.0100, L506.0400, L501.83363, L3300.0960, L501.9520 #### [facility] [address] [place], [address] HGB Normal 12.0-15.0 [facility] Comment on above: Order Comment: Order Date: 02/09/25 Order Info: [id number] - CBCD Result Comment: IN E MPH LABS Performed By: #### L 100.0100, L506.0400, L501.90133, L3300.0960, L501.9520 #### [facility] [address] [place], [address] MCH Normal 27.0-32.0 [facility] Comment on above: Order Comment: Order Date: 02/09/25 Order Info: [id number] - CBCD Result Comment: IN E MPH LABS Performed By: #### L 100.0100, L506.0400, L501.64324, L3300.0960, L501.9520 #### [facility] [address] [place], [address] MCHC Normal 32-36 [facility] Comment on above: Order Comment: Order Date: 02/09/25 Order Info: [id number] - CBCD Result Comment: IN E MPH LABS Performed By: #### L 100.0100, L506.0400, L501.43342, L3300.0960, L501.9520 #### [facility] [address] [place], [address] MCV Normal 81-99 [facility] Comment on above: Order Comment: Order Date: 02/09/25 Order Info: [id number] - CBCD Result Comment: IN E MPH LABS Performed By: #### L 100.0100, L506.0400, L501.65522, L3300.0960, L501.9520 #### [facility] [address] [place], [address] NEUT% Normal 47-70 [facility] Comment on above: Order Comment: Order Date: 02/09/25 Order Info: [id number] - CBCD Result Comment: IN E MPH LABS Performed By: #### L 100.0100, L506.0400, L501.51029, L3300.0960, L501.9520 #### [facility] [address] [place], [address] PLT Normal 150-450 [facility] Comment on above: Order Comment: Order Date: 02/09/25 Order Info: [id number] - CBCD Result Comment: IN E MPH LABS Performed By: #### L 100.0100, L506.0400, L501.57123, L3300.0960, L501.9520 #### [facility] [address] [place], [address] RBC Normal 4.2-5.4 [facility] Comment on above: Order Comment: Order Date: 02/09/25 Order Info: [id number]- - CBCD Result Comment: IN E MPH LABS Performed By: #### L 100.0100, L506.0400, L501.34353, L3300.0960, L501.9520 #### [facility] [address] [place], [address] RDW CV Normal 11.6-14.6 [facility] Comment on above: Order Comment: Order Date: 02/09/25 Order Info: [id number] - CBCD Result Comment: IN E MPH LABS Performed By: #### L 100.0100, L506.0400, L501.30284, L3300.0960, L501.9520 #### [facility] [address] [place], [address] RDW SD Normal 35.1-43.9 [facility] Comment on above: Order Comment: Order Date: 02/09/25 Order Info: [id number] - CBCD Result Comment: IN E MPH LABS Performed By: #### L 100.0100, L506.0400, L501.78568, L3300.0960, L501.9520 #### [facility] [address] [place], [address] WBC Normal 4.4-11.0 [facility] Comment on above: Order Comment: Order Date: 02/09/25 Order Info: [id number] - CBCD Result Comment: IN E MPH LABS Performed By: #### L 100.0100, L506.0400, L501.57962, L3300.0960, L501.9520 #### [facility] [address] [place], [address] CBC, Employeeon 02-14-2025 Absolute Lymph 2.12 X10 3/uL Normal 0.83-4.51 [facility] Comment on above: Performed By: #### L 500.2900, L400.0100, L100.0200 #### [facility] [address] [place], [address] Absolute Neut 2.8 X10 3/uL Normal 2.0-7.7 [facility] Comment on above: Performed By: #### L 500.2900, L400.0100, L100.0200 #### [facility] [address] [place], [address] Basophils/100 WBC (Bld) 2.0 % High 0-1 [facility] Comment on above: Performed By: #### L 500.2900, L400.0100, L100.0200 #### [facility] [address] [place], [address] Eosinophils/100 WBC (Bld) 3.2 % Normal 0-5 [facility] Comment on above: Performed By: #### L 500.2900, L400.0100, L100.0200 #### [facility] [address] [place], [address] Erythrocyte distribution width (RBC) [Ratio] 11.9 % Normal 11.6-14.6 [facility] Comment on above: Performed By: #### L 500.2900, L400.0100, L100.0200 #### [facility] [address] [place], [address] Hematocrit (Bld) [Volume fraction] 42.7 % Normal 37-47 [facility] Comment on above: Performed By: #### L 500.2900, L400.0100, L100.0200 #### [facility] [address] [place], [address] Hemoglobin (Bld) [Mass/Vol] 14.1 g/dL Normal 12.0-15.0 [facility] Comment on above: Performed By: #### L 500.2900, L400.0100, L100.0200 #### [facility] [address] [place], [address] Lymphocytes/100 WBC (Bld) 37.8 % Normal 19-41 [facility] Comment on above: Performed By: #### L 500.2900, L400.0100, L100.0200 #### [facility] [address] [place], [address] MCH (RBC) [Entitic mass] 30.1 pg Normal 27.0-32.0 [facility] Comment on above: Performed By: #### L 500.2900, L400.0100, L100.0200 #### [facility] [address] [place], [address] MCHC (RBC) [Mass/Vol] 33.0 g/dL Normal 32-36 [facility] Comment on above: Performed By: #### L 500.2900, L400.0100, L100.0200 #### [facility] [address] [place], [address] MCV (RBC) [Entitic vol] 91.0 fL Normal 81-99 [facility] Comment on above: Performed By: #### L 500.2900, L400.0100, L100.0200 #### [facility] [address] [place], [address] Monocytes/100 WBC (Bld) 6.6 % Normal 0-10 [facility] Comment on above: Performed By: #### L 500.2900, L400.0100, L100.0200 #### [facility] [address] [place], [address] Neutrophils/100 WBC (Bld) 50.0 % Normal 47-70 [facility] Comment on above: Performed By: #### L 500.2900, L400.0100, L100.0200 #### [facility] [address] [place], [address] NRBC # 0.00 10 3/uL Normal 0-5 [facility] Comment on above: Performed By: #### L 500.2900, L400.0100, L100.0200 #### [facility] [address] [place], [address] Nucleated RBC (Bld) [#/Vol] 0 10*3/uL Normal 0-5 [facility] Comment on above: Performed By: #### L 500.2900, L400.0100, L100.0200 #### [facility] [address] [place], [address] Platelet mean volume (Bld) [Entitic vol] 9.9 fL Normal 6.2-12.0 [facility] Comment on above: Performed By: #### L 500.2900, L400.0100, L100.0200 #### [facility] [address] [place], [address] Platelets (Bld) [#/Vol] 307 10*3/uL Normal 150-450 [facility] Comment on above: Performed By: #### L 500.2900, L400.0100, L100.0200 #### [facility] [address] [place], [address] RBC (Bld) [#/Vol] 4.69 10*6/uL Normal 4.2-5.4 [facility] Comment on above: Performed By: #### L 500.2900, L400.0100, L100.0200 #### [facility] [address] [place], [address] RDW SD 39.8 fl Normal 35.1-43.9 [facility] Comment on above: Performed By: #### L 500.2900, L400.0100, L100.0200 #### [facility] [address] [place], [address] WBC (Bld) [#/Vol] 5.6 10*3/uL Normal 4.4-11.0 [facility] Comment on above: Performed By: #### L 500.2900, L400.0100, L100.0200 #### [facility] [address] [place], [address] Calculated very low density lipoprotein (VLDL) cholesterol measurementOrdered By: HEALTH ASSESSMENT on 02-14-2025 Calculated very low density lipoprotein (VLDL) cholesterol measurement 16 mg/dL 5-40 [facility] Carbon dioxide, total [Moles /volume] in Central venous bloodOrdered By: HEALTH ASSESSMENT on 02-14-2025 CO2 [Moles/Vol] 24.5 mmol/L 21.0-32.0 [facility] Chloride assayOrdered By: HE ALTH ASSESSMENT on 02-14-2025 Chloride [Moles/Vol] 104 mmol/L 98-108 [facility] Employee Profileon Cholesterol in LDL [Mass/Vol] 137 mg/dL High 0-130 [facility] Comment on above: Performed By: #### L 500.2900, L400.0100, L100.0200 #### [facility] [address] [place], [address] Erythrocyte distribution wid th ratioOrdered By: HEALTH ASSESSMENT on 02-14-2025 Erythrocyte distribution width (RBC) [Ratio] 11.9 % 11.6-14.6 [facility] Erythrocyte distribution wid th standard deviationOrdered By: HEALTH ASSESSMENT on 02-14-2025 Erythrocyte distribution width (RBC) [Ratio] 39.8 fl 35.1-43.9 [facility] Free T3on 02-14-2025 Free T3 [Mass/Vol] 3.0 pg/mL Normal 2.18-3.98 [facility] Comment on above: Order Comment: Order Date: 02/09/25 Order Info: [id number] - CMP Order Info: [id number] - LIPID Order Info: [id number] - T3F Order Info: [id number] - TSH Order Info: [id number] - T4F Performed By: #### L 100.0100, L506.0400, L501.28644, L3300.0960, L501.9520 #### [facility] [address] [place] [address]. [place], [address] Free [id number] By: Rahat mcfarland on 02-14-2025 Free T3 [Mass/Vol] 3.0 pg/mL 2.18-3.98 [facility] Glomerular filtration rate ( GFR) estimation/1.73 sq m using serum, plasma, or whole bOrdered By: HEALTH ASSESSMENT on 02-14-2025 GFR/1.73 sq M.predicted among non-blacks MDRD (S/P/Bld) [Vol rate/Area] 84 mL/min/{1.73_m2} >60 [facility] Comment on above: mL/min/1.73m2 CKD-EP I Creatinine Equation (2020) Hematocrit Auto (Bld) [Volum e fraction]Ordered By: HEALTH ASSESSMENT on 02-14-2025 Hematocrit (Bld) [Volume fraction] 42.7 % 37-47 [facility] Hemoglobin measurementOrdere d By: HEALTH ASSESSMENT on 02-14-2025 Hemoglobin (Bld) [Mass/Vol] 14.1 g/dL 12.0-15.0 [facility] - Chemistry and C hemistry - challengeOrdered By: HEALTH ASSESSMENT on 02-14-2025 AST [Catalytic activity/Vol] 22 U/L <32 [facility] Lactate dehydrogenase (LDH) measurementOrdered By: HEALTH ASSESSMENT on 02-14-2025 LDH [Catalytic activity/Vol] 215 U/L 84-246 [facility] Low density lipoprotein (LDL ) cholesterol measurementOrdered By: HEALTH ASSESSMENT on 02-14-2025 Cholesterol in LDL [Mass/Vol] 137 mg/dL High 0-130 [facility] MCV (mean corpuscular volume ) determinationOrdered By: HEALTH ASSESSMENT on 02-14-2025 MCV (RBC) [Entitic vol] 91.0 fL 81-99 [facility] Mean corpuscular hemoglobin (MCH) determinationOrdered By: HEALTH ASSESSMENT on 02-14-2025 MCH (RBC) [Entitic mass] 30.1 pg 27.0-32.0 [facility] Mean corpuscular hemoglobin concentration (MCHC) determinationOrdered By: HEALTH ASSESSMENT on 02-14-2025 MCHC (RBC) [Mass/Vol] 33.0 g/dL 32-36 [facility] Mean platelet volume determi nationOrdered By: HEALTH ASSESSMENT on 02-14-2025 Platelet mean volume (Bld) [Entitic vol] 9.9 fL 6.2-12.0 [facility] Nucleated red blood cell per centageOrdered By: HEALTH ASSESSMENT on 02-14-2025 Nucleated RBC/100 WBC (Bld) [Ratio] 0 % 0-5 [facility] Platelet countOrdered By: HE ALTH ASSESSMENT on 02-14-2025 Platelets (Bld) [#/Vol] 307 10*3/uL 150-450 [facility] Potassium measurement (mass/ volume)Ordered By: HEALTH ASSESSMENT on 02-14-2025 Potassium (Unsp spec) [Mass/Vol] 4.2 mmol/L 3.3-5.1 [facility] RBC Auto (Bld) [#/Vol]Ordere d By: HEALTH ASSESSMENT on 02-14-2025 RBC (Bld) [#/Vol] 4.69 10*6/uL 4.2-5.4 [facility] Screening total cholesterol/ high density lipoprotein (HDL) cholesterol ratioOrdered By: HEALTH ASSESSMENT on 02-14-2025 Cholesterol.total/Chol esterol in HDL [Mass ratio] 2.94 {ratio} [facility] Serum creatinine measurement (mass/volume)Ordered By: HEALTH ASSESSMENT on 02-14-2025 Creatinine [Mass/Vol] 0.85 mg/dL 0.70-1.20 [facility] Serum globulin measurementOr dered By: HEALTH ASSESSMENT on 02-14-2025 Globulin (S) [Mass/Vol] 2.7 g/dL 2.2-4.2 [facility] Serum glucose measurement (m ass/volume)Ordered By: HEALTH ASSESSMENT on 02-14-2025 Glucose [Mass/Vol] 90 mg/dL 70-99 [facility] Serum or plasma alanine turcios otransferase (ALT) measurementOrdered By: HEALTH ASSESSMENT on 02-14-2025 ALT [Catalytic activity/Vol] 21 U/L <35 [facility] Serum or plasma albumin juanito urement (mass/volume)Ordered By: HEALTH ASSESSMENT on 02-14-2025 Albumin [Mass/Vol] 4.2 g/dL 3.5-5.0 [facility] Serum or plasma albumin/glob ulin mass ratioOrdered By: HEALTH ASSESSMENT on 02-14-2025 Albumin/Globulin [Mass ratio] 1.6 {ratio} 0.9-2.4 [facility] Serum or plasma alkaline zahida sphatase measurementOrdered By: HEALTH ASSESSMENT on 02-14-2025 ALP [Catalytic activity/Vol] 100 U/L 35-104 [facility] Serum or plasma calcitriol m easurement (mass/volume)Ordered By: Rahat Villarreal on 02-14-2025 1,25-dihydroxyvitamin D3 [Mass/Vol] 61.5 pg/mL 24.8-81.5 [facility] Comment on above: Performed at: [address] [id number] Director: Forest Ayala MD, Phone: [phone] Serum or plasma calcium juanito urement (mass/volume)Ordered By: HEALTH ASSESSMENT on 02-14-2025 Calcium [Mass/Vol] 9.3 mg/dL 7.6-11.0 [facility] Serum or plasma cholesterol in HDL measurement (mass/volume)Ordered By: HEALTH ASSESSMENT on 02-14-2025 Cholesterol in HDL [Mass/Vol] 79 mg/dL >40 [facility] Comment on above: National Cholesterol Education Program (NCEP) guidelines:<40 mg/dL: Low HDL-cholesterol (major risk factor for CHD)>= 60 mg/dL: High HDL-cholesterol (negative risk factor for CHD)HDL-cholesterol is affected by a number of factors, e.g. smoking, exercise, hormones, sex and age. Serum or plasma cholesterol measurement (mass/volume)Ordered By: HEALTH ASSESSMENT on 02-14-2025 Cholesterol [Mass/Vol] 232 mg/dL High <201 [facility] Comment on above: Cholesterol level, D esirable <200 mg/dLBorderline high cholesterol 200-239 mg/dLHigh cholesterol >=240 mg/dLRecommendations of the NCEP Adult Treatment Panel for the following risk-cutoff thresholds for the [place] population. Serum or plasma urea nitroge n measurement (mass/volume)Ordered By: HEALTH ASSESSMENT on 02-14-2025 Urea nitrogen [Mass/Vol] 10 mg/dL 4-19 [facility] Serum or plasma uric acid me asurement (mass/volume)Ordered By: [facility] ASS[facility] on 02-14-2025 Urate [Mass/Vol] 3.2 mg/dL 2.6-6.0 [facility] Comment on above: The drugs N-Acetylcy steine and Metamizole may falsely depress this assay. Sodium levelOrdered By: HEAL TH ASSESSMENT on 02-14-2025 Sodium [Moles/Vol] 139 mmol/L 133-145 [facility] T4 Free Directon 02-14-2025 T4 FREE DIRECT 1.10 ng/dL Normal 0.76-1.46 [facility] Comment on above: Order Comment: Order Date: 02/09/25Order Info: [id number] - CMPOrder Info: [id number] - LIPIDOrder Info: [id number] - X1UUqkow Info: [id number] - TSHOrder Info: [id number] - T4F Performed By: #### L 500.2900, L400.0100, L100.0200 #### [facility] [address] [place], [address] T4 freeOrdered By: Rahat mcfarland on 02-14-2025 Free T4 [Mass/Vol] 1.10 ng/dL 0.76-1.46 [facility] TSH DL <= 0.005 mIU/L QnOrde red By: Rahat Villarreal on 02-14-2025 TSH Qn 1.090 uIU/mL 0.300-4.200 [facility] Thyroid Stim Hormone (TSH)on 02-14-2025 TSH 1.090 uIU/mL Normal 0.300-4.200 [facility] Comment on above: Order Comment: Order Date: 02/09/25Order Info: [id number] - CMPOrder Info: [id number] - LIPIDOrder Info: [id number] - Z6PSuhsy Info: [id number] - TSHOrder Info: [id number] - T4F Performed By: #### L 500.2900, L400.0100, L100.0200 #### [facility] [address] [place], [place], [id number] Total proteinOrdered By: Gene [facility] ASSESSMENT on 02-14-2025 Protein [Mass/Vol] 7.0 g/dL 5.9-8.4 [facility] Triglycerides measurementOrd ered By: HEALTH ASSESSMENT on 02-14-2025 Triglyceride [Mass/Vol] 81 mg/dL <199 [facility] Comment on above: The drugs N-Acetylcy steine and Metamizole may falsely depress this assay. Normal range: <150 mg/dLBorderline High: 150-199 mg/dLHigh: 200-499 mg/dLVery High: >500 mg/dL Urinalysis, Employeeon 02-14 BILIRUBIN URINE Normal Negative [facility] Comment on above: Order Comment: Urine , Random Result Comment: PT R EFUSED Performed By: #### L 500.2900, L400.0100, L100.0200 #### [facility] [address] [place], [address] Clarity (U) Normal Clear [facility] Comment on above: Order Comment: Urine , Random Result Comment: PT R EFUSED Performed By: #### L 500.2900, L400.0100, L100.0200 #### [facility] [address] [place], [address] Color (U) Normal Yellow [facility] Comment on above: Order Comment: Urine , Random Result Comment: PT R EFUSED Performed By: #### L 500.2900, L400.0100, L100.0200 #### [facility] [address] [place], [address] GLUCOSE, UR Normal Normal [facility] Comment on above: Order Comment: Urine , Random Result Comment: PT R EFUSED Performed By: #### L 500.2900, L400.0100, L100.0200 #### [facility] [address] [place], [address] KETONE UR Normal Negative [facility] Comment on above: Order Comment: Urine , Random Result Comment: PT R EFUSED Performed By: #### L 500.2900, L400.0100, L100.0200 #### [facility] [address] [place], [address] LEUK ESTERASE Normal Negative [facility] Comment on above: Order Comment: Urine , Random Result Comment: PT R EFUSED Performed By: #### L 500.2900, L400.0100, L100.0200 #### [facility] [address] [place], [address] Nitrite Ql (U) Normal Negative [facility] Comment on above: Order Comment: Urine , Random Result Comment: PT R EFUSED Performed By: #### L 500.2900, L400.0100, L100.0200 #### [facility] [address] [place], [address] OCCULT BLOOD-UR Normal Negative [facility] Comment on above: Order Comment: Urine , Random Result Comment: PT R EFUSED Performed By: #### L 500.2900, L400.0100, L100.0200 #### [facility] [address] [place], [address] pH UR Normal 5.0 - 8.0 [facility] Comment on above: Order Comment: Urine , Random Result Comment: PT R EFUSED Performed By: #### L 500.2900, L400.0100, L100.0200 #### [facility] [address] [place], [address] PROT DIPSTX Normal Negative [facility] Comment on above: Order Comment: Urine , Random Result Comment: PT R EFUSED Performed By: #### L 500.2900, L400.0100, L100.0200 #### [facility] [address] [place], [address] SP.GR. DIPSTX Normal 1.002-1.030 [facility] Comment on above: Order Comment: Urine , Random Result Comment: PT R EFUSED Performed By: #### L 500.2900, L400.0100, L100.0200 #### [facility] [address] [place], [address] UR Preservative Normal [facility] Comment on above: Order Comment: Urine , Random Result Comment: PT R EFUSED Performed By: #### L 500.2900, L400.0100, L100.0200 #### [facility] [address] [place], [address] UROBILI Normal Normal [facility] Comment on above: Order Comment: Urine , Random Result Comment: PT R EFUSED Performed By: #### L 500.2900, L400.0100, L100.0200 #### [facility] [address] [place], [address] White blood cell (WBC) count Ordered By: HEALTH ASSESSMENT on 02-14-2025 WBC (Bld) [#/Vol] 5.6 10*3/uL 4.4-11.0 [facility] Breast imaging reportOrdered By: Makayla Jenkins on 12-08-2024 Study report [facility] Imaging Services [address] [place] [address] SCRN MAMM (CAD)W/PARVEEN BILAT MR#: [id number] Acct: [id number] Name: STEVEN LOVE Rep #: [id number] : 1975 F 49 From: Danielle Jenkins MD PCP: Dr. Rahat Villarreal MD Status: REG CL I Study:SCRN MAMM (CAD)W/PARVEEN BILAT Date of Exa m: 12/07/24 Exam# [id number] Ordering Dr: Gay Woods MD EXAM: SCRN MAMM (CAD)W/PARVEEN BILAT 12/07/2024 CLINICAL HISTORY: F, Age 49 y/o , SCREENING MAMMOGRAM TECHNIQUE: Bilateral screening digital breast tomosynthesis with 2D and 3D images. Computeraided detection. COMPARISON: Prior exam(s) dated 06/01/2022, 05/28/2021. FINDINGS: TISSUE DENSITY: The breast tissue is heterogenously dense, which may obscure small masses. The mammogram demonstrates that the patient has dense breasts. Supplemental screening with whole breast ultrasound or MRI may be considered for further evaluation. Bilateral Breast Mammographic Findings: No significant masses, calcifications or other abnormalities are identified. BI/SCRN MAMM (CAD)W/PARVEEN BILAT IMPRESSION: There is no mammographic evidence of malignancy. OVERALL FINAL ASSESSMENT: BIRADS 1 NEGATIVE. RECOMMENDATION: Routine annual follow-up in 1 Year A letter with findings and recommendations will be mailed to the patient. Reading Location: [facility] CC: Dr. Rahat Villarreal MD; Dr. Gay Mcfarlane MD ~ Extension Clerk: Signed [facility] SCRN MAMM (CAD)W/PARVEEN BILATo n 12-07-2024 SCRN MAMM (CAD)W/PARVEEN BILAT [facility] Imaging Services [address] [place] [address] SCRN MAMM (CAD)W/PARVEEN BILAT MR#: [id number] Acct: [id number] Name: STEVEN LOVE Rep #: [id number] : 1975 F 49 From: Makayla Jenkins MD PCP: Dr. Rahat Villarreal MD Status: REG CLI Study: SCRN MAMM (CAD)W/PARVEEN BILAT Date of Exam: 11/19 Exam# [id number] Ordering Dr: Gay Mcfarlane EXAM: SCRN MAMM (CAD)W/PARVEEN BILAT 12/07/2024 CLINICAL HISTORY: F, Age 49 y/o , SCREENING MAMMOGRAM TECHNIQUE: Bilateral screening digital breast tomosynthesis with 2D and 3D images. Computer aided detection. COMPARISON: Prior exam(s) dated 06/01/2022, 05/28/2021. FINDINGS: TISSUE DENSITY: The breast tissue is heterogenously dense, which may obscure small masses. The mammogram demonstrates that the patient has dense breasts. Supplemental screening with whole breast ultrasound or MRI may be considered for further evaluation. Bilateral Breast Mammographic Findings: No significant masses, calcifications or other abnormalities are identified. BI/SCRN MAMM (CAD)W/PARVEEN BILAT IMPRESSION: There is no mammographic evidence of malignancy. OVERALL FINAL ASSESSMENT: BIRADS 1 NEGATIVE. RECOMMENDATION: Routine annual follow-up in 1 Year A letter with findings and recommendations will be mailed to the patient. Reading Location: [facility] CC: Dr. Rahat Villarreal MD; Dr. Gay Mcfarlane MD Extension Clerk: Signed Normal [facility] PAP IG HPV APTIMA 16/18,45on 10-27-2024 ADEQ Comment Normal . [facility] Comment on above: Order Comment: Speci men Comment: [id number] Specimen Comment: Source.............Cervix Specimen Comment: No. of containers..01 ThinPrep Vial Result Comment: Sati sfactory for evaluation. Endocervical and/or squamous metaplastic cells (endocervical component) are present. Performed By: #### L 7400.0280 #### [facility] [address] [place], [place], [address] COMM . Normal . [facility] Comment on above: Order Comment: Speci men Comment: [id number] Specimen Comment: Source.............Cervix Specimen Comment: No. of containers..01 ThinPrep Vial Performed By: #### L 7400.0280 #### [facility] [address] [place], [place], [address] COMMENT Comment Normal . [facility] Comment on above: Order Comment: Speci men Comment: [id number] Specimen Comment: Source.............Cervix Specimen Comment: No. of containers..01 ThinPrep Vial Result Comment: This liquid based ThinPrep(R) pap test was screened with the use of an image guided system. Performed By: #### L 7400.0280 #### [facility] [address] [place], [place], [address] DIAG Comment Normal . [facility] Comment on above: Order Comment: Speci men Comment: [id number] Specimen Comment: Source.............Cervix Specimen Comment: No. of containers..01 ThinPrep Vial Result Comment: NEGA TIVE FOR INTRAEPITHELIAL LESION OR MALIGNANCY. Performed By: #### L 7400.0280 #### [facility] [address] [place], [place], [address] HPV APTIMA, HR Negative Normal Negative [facility] Comment on above: Order Comment: Speci men Comment: [id number] Specimen Comment: Source.............Cervix Specimen Comment: No. of containers..01 ThinPrep Vial Result Comment: This nucleic acid amplification test detects fourteen high- risk HPV types (16,18,31,33,35,39,45,51,52,56,58,59,66,68) without differentiation. Performed By: #### L 7400.0280 #### [facility] [address] [place], [place], [address] HPV Zonia Rfx Comment Normal . [facility] Comment on above: Order Comment: Speci men Comment: [id number] Specimen Comment: Source.............Cervix Specimen Comment: No. of containers..01 ThinPrep Vial Result Comment: Crit ersusanna not met, HPV Genotype not performed. Performed at: - [facility] [id number] Gameplay Programmer: Sima Tam MD, Phone: [phone] Performed at: = - [facility] [id number] Gameplay Programmer: Sima Tam MD, Phone: [phone] Performed By: #### L 7400.0280 #### [facility] [address] [place], [place], [address] PAPSMR Comment Normal . [facility] Comment on above: Order Comment: Speci men Comment: [id number] Specimen Comment: Source.............Cervix Specimen Comment: No. of containers..01 ThinPrep Vial Result Comment: The Pap smear is a screening test designed to aid in the detection of premalignant and malignant conditions of the uterine cervix. It is not a diagnostic procedure and should not be used as the sole means of detecting cervical cancer. Both false-positive and false-negative reports do occur. Performed By: #### L 7400.0280 #### [facility] [address] [place], [place], [address] PERFORM Comment Normal . [facility] Comment on above: Order Comment: Speci men Comment: [id number] Specimen Comment: Source.............Cervix Specimen Comment: No. of containers..01 ThinPrep Vial Result Comment: Radha Joy, Central Control Room Operator (ASCP) Performed By: #### L 7400.0280 #### [facility] [address] [place], [address] Cervical or vaginal specimen microscopic examination by liquid based cytology (reportOrdered By: Gay Mcfarlane on 10-23-2024 Cytology report Cyto stain.thin prep Doc (Cvx/Vag) Comment . [facility] Comment on above: Criteria not met, HP V Genotype not performed.Performed at: - [facility] [id number] Director: Sima Tam MD, Phone: [phone] at: = - [facility] [id number] Director: Sima Tam MD, Phone: [phone] Cervical or vagninal specime n microscopic examination by cytology stain (reported asOrdered By: Gay Mcfarlane on 10-23-2024 Cytology report Cyto stain Doc (Cvx/Vag) Comment . [facility] Comment on above: The Pap smear is a s creening test designed to aid in thedetection of premalignant and malignant conditions of theuterine cervix. It is not a diagnostic procedure andshould not be used as the sole means of detecting cervicalcancer. Both false-positive and false-negative reports dooccur. Mobile Tester Cyto stain Nom (C vx/Vag) [ID]Ordered By: Gay Mcfarlane on 10-23-2024 Pap Smear Performed By Comment . [facility] Comment on above: Swapna Joy, Cytot echnologist (ASCP) Cytology report Cyto stain D oc (Cvx/Vag)Ordered By: Gay Mcfarlane on 10-23-2024 Thin Prep Pap Smear Comment . [facility] Comment on above: The Pap smear is a s creening test designed to aid in thedetection of premalignant and malignant conditions of theuterine cervix. It is not a diagnostic procedure andshould not be used as the sole means of detecting cervicalcancer. Both false-positive and false-negative reports dooccur. Cytology report Cyto stain.t hin prep Doc (Cvx/Vag)Ordered By: Gay Mcfarlane on 10-23-2024 HPV Genotype Special Info Comment . [facility] Comment on above: Criteria not met, HP V Genotype not performed.Performed at: - [facility] [address] [id number] Director: Sima Tam MD, Phone: [phone] at: =G - [facility] [address] [id number] Director: Sima Tam MD, Phone: [phone] Detection in cervical specim en of any of human papilloma virus (HPV) 16, 18, 31, 33,Ordered By: Gay Mcfarlane on 10-23-2024 HPV 16+18+31+33+35+39+45+5 1+52+56+58+59+66+68 DNA Probe+sig amp Ql (Cvx) Negative Negative [facility] Comment on above: This nucleic acid am plification test detects fourteen high- risk HPV types (16,18,31,33,35,39,45,51,52,56,58,59,66,68)without differentiation. HPV 16+18+31+33+35+39+45+51+ 52+56+58+59+66+68 DNA Probe+sig amp Ql (Cvx)Ordered By: Gay Mcfarlane on 10-23-2024 Human Papillomavirus High Risk Negative Negative [facility] Comment on above: This nucleic acid am plification test detects fourteen high- risk HPV types (16,18,31,33,35,39,45,51,52,56,58,59,66,68)without differentiation. Image-guided ThinPrep PapOrd ered By: Gay Mcfarlane on 10-23-2024 Pap Smear Note Comment . [facility] Comment on above: This liquid based Th inPrep(R) pap test was screened withthe use of an image guided system. Image-guided liquid-based Pa pOrdered By: Gay Mcfarlane on 10-23-2024 Pap Smear Diagnosis Comment . [facility] Comment on above: NEGATIVE FOR INTRAEP ITHELIAL LESION OR MALIGNANCY. Laboratory - CytologyOrdered By: Gay Mcfarlane on 10-23-2024 Mobile Tester Cyto stain Nom (Cvx/Vag) [ID] Comment . [facility] Comment on above: Swapna Joy, Cytot echnologist (ASCP) Laboratory - Miscellaneous t estsOrdered By: Gay Mcfarlane on 10-23-2024 Service comment (Unsp spec) [Interp] . . [facility] No Panel InformationOrdered By: Gay Mcfarlane on 10-23-2024 Pap Smear Specimen Adequacy Comment . [facility] Comment on above: Satisfactory for evonne luation. Endocervical and/or squamous metaplasticcells (endocervical component) are present. Finish Mender Office Visit Reporton 10-23-2024 Finish Mender Office Visit Report [facility] [address], [address] [place] [address] OFFICE VISIT Date of Service: 10/23/24 MR#: [id number] Acct: [id number] Name: STEVEN LOVE Rep #: [id number] : 1975 Provider: Dr. 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: No Is patient in pain?: No Feel stressed/tense/nervous/a nxious/difficulty sleeping: not at all Allergies No Known Allergies Allergy (Verified 10/23/24 14:14) Medications ???Medication ???Instructions ???Recorded ???Confirmed ???Type multivitamin 1 tab PO DAILY 09/21/23 10/23/24 H istory relugolix 40 mg-estradiol 1 1 tab PO DAILY #30 tabs 10/16/24 0 10/23/24 Rx mg-norethindrone acetate 0.5 mg tablet ([place]) Is last menstrual period known: No Patient : No : No PFSH Surgical History (Updated 10/23/24 @ 14:16 by Sofía Gilliland) [place] teeth extracted H/O colonoscopy Family History Grandmother Colon cancer Father Hypertension Mother Myocardial infarction Thyroid disorder Social History adopted: No number of children: 3 current occupational status: employed current occupation: [employer] current occupational exposures/hazards: No history of recent travel: No sexually active: Yes Smoking Status: Never smoker alcohol intake: current alcohol intake frequency: holidays/special occasions only seatbelt use: always do you feel safe at home: Yes 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 Date Name GA/Weeks Outcome Route Bth Weight Gen Labor Lgth Anesthesia Del Locatn Provider FOB Unknown 2000 Pedro Unknown 2002 Lawson Unknown 2005 Danny HPI Encounter for routine gynecological examination Details: STEVEN LOVE is a 49 year old who presents for annual exam. Last PAP: 05/26/2022 - normal History of abnormal PAP: Last mammogram: 05/26/2022 - normal History of abnormal mammogram: Colon cancer screening: colonoscopy 08/24/2022 Other preventative health care screenings: PCP Dr. Villarreal Female Reproductive History Questions: metorrhagia: No, sexually active: Yes, dyspareunia: No and PCB: No Menopausal Symptoms: No hot flashes, No night sweats, No weight change, No mood changes, No difficulty concentrating, No sleep problems and No change in libido ROS Const Constitutional: Reports as per HPI; Denies fatigue, increased appetite, poor appetite, night sweats, weight gain or weight loss Cardio Card: Denies chest pain Resp Resp: Denies cough or dyspnea GI GI: Reports as per HPI; Denies abdominal pain, bloating, constipation, nausea or vomiting : Reports as per HPI and other; Denies difficulty voiding, dysuria, hematuria, hot flashes, nipple discharge, pelvic pain, prolapse symptoms, urinary frequency, urinary incontinence, urinary urgency, vaginal discharge, vaginal dryness, vaginal odor or vaginal pruritus Skin Skin/Breast: Denies changing lesions, breast mass, breast pain, breast skin changes or nipple discharge Psych Psych: Denies anxiety, change in libido, depression or difficulty concentrating Exam Const General: cooperative, healthy appearing, comfortable, no acute distress, well developed and well groomed HENSC Head: normal to inspection and normocephalic Ears: hearing grossly normal bilaterally and external ears normal Nose: external nose normal Face and sinus: normal facial exam Neck Neck: normal visual inspection, full ROM and no lymphadenopathy Thyroid: thyroid normal Chest Chest palpation inspection: normal inspection of the chest Breast inspection: normal inspection of the breasts and normal inspection of the axillae Breast palpation: normal palpation of the breasts, normal palpation of the axillae and no axillary lymphadenopathy Resp Effort Inspection: normal respiratory effort GI Inspection: normal to inspection and non-distended Palpation: soft, no hepatosplenomegaly and no guarding General: bladder normal to palpation External Female Exam: normal external appearance, normal appea (more content not included)... Normal [facility] Service comment (Unsp spec) [Interp]Ordered By: Gay Mcfarlane on 10-23-2024 Pap Smear Comment (3) . . [facility] Urgent Care Visit Reporton 0 03-27-2024 Urgent Care Visit Report [facility] [address], [address] [place] [address] OFFICE VISIT Date of Service: 03/27/24 MR#: [id number] Acct: [id number] Name: STEVEN REAL Rep #: [id number] : 1975 Provider: TIANA Chua Age/Sex: 49/F Location: [facility] Status: Signed Intake Vital Signs 12/13/23 09:27 03/27/24 09:58 Height 5 ft 5 in 5 ft 5 in Weight: 167 lb 8 oz 160 lb BMI 27.8 26.6 BP 131/80 H 122/86 H Blood Pressure Location Lt brachial Position Sitting Respiration 16 Pulse 101 H Pulse Source Monitor Temp 98.7 F Temp Source Temporal Pulse Oximetry (%) 100 Oxygen Delivery Method room air Intake Visit Reasons: FEVER/COUGH/CONGESTION Chief Complaint: FEVER COUGH CONGESTION Senior Supply Chain Analyst Required: No Accompanied by: Self Is patient in pain?: No Allergies No Known Allergies Allergy (Verified 03/27/24 09:59) Medications ???Medication ???Instructions ???Recorded ???Confirmed ???Type multivitamin 1 tab PO DAILY 09/21/23 03/27/24 History relugolix 40 mg-estradiol 1 1 tab PO DAILY #30 tabs 09/21/23 03/27/24 Rx mg-norethindrone acetate 0.5 mg tablet ([place]) benzonatate 200 mg capsule 200 mg PO TID PRN cough #20 caps 03/27/24 03/27/24 Rx methylprednisolone 4 mg tablets in See Rx Instructions PO PER PKG DIR 03/27/24 03/27/24 Rx a dose pack (Medrol (Jeevan)) #21 tabs PFSH Surgical History H/O colonoscopy Family History Grandmother Colon cancer Father Hypertension Mother Myocardial infarction Thyroid disorder Social History adopted: No number of children: 3 current occupational status: employed current occupation: [employer] current occupational exposures/hazards: No history of recent travel: No sexually active: Yes Smoking Status: Never smoker alcohol intake: current alcohol intake frequency: holidays/special occasions only seatbelt use: always do you feel safe at home: Yes 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 Patient notes no complaints of chest pain or shortness of breath or dyspnea on exertion. Several close contacts recently dx???d w/ similar URI complaints. Nonsmoker. Declining all POC screening upon offering. No cldc-qeb-epfrpok taken to assist. No other associated symptoms and no other alleviating/aggravating factors. ROS Const Constitutional: No other (As above) Exam Const General: cooperative, healthy appearing and no acute distress Orientation: alert, awake and oriented x3 HENMT Head: normal to inspection Ears: hearing grossly normal bilaterally, external ears normal, TM's normal bilaterally and EAC's normal Nose: external nose normal, nares normal, septum normal and clear nasal discharge Face and sinus: normal facial exam, sinuses nontender and face symmetric Mouth: oral mucosae normal, lip normal, tongue normal and oropharynx normal Throat: posterior oropharynx normal, tonsils normal, uvula midline and no postnasal drainage Eyes General: appearance normal, both eyes and all related structures Neck Neck: normal visual inspection, full ROM, no lymphadenopathy, no meningeal signs and supple Neck mass: No Thyroid: thyroid normal Lymphatic: no lymphadenopathy noted Chest Chest palpation inspection: normal inspection of the chest Resp Effort Inspection: normal respiratory effort, able to speak in complete sentences and cough Quality of cough: dry (nonproductive in office today) Auscultation: Bilateral: Clear to Auscultation Cardio Palpation: normal PMI Rate: tachycardic Rhythm: regular rhythm Heart Sounds: S1 normal, S2 normal, no gallops, no murmurs and no rubs Pulses: radial pulses present Skin General: no rashes or lesions noted Neuro General: patient alert, patient awake and patient oriented x3 Cognition: normal cognition Speech: speech normal Psych Appearance: grossly normal Mental Status: mental status grossly normal Mood: congruent mood Affect: normal affect Speech and Movement: speech and movement normal Attitude: cooperative Diagnoses URI (upper respiratory infection) J06.9 Assessment and Plan Assessment and Plan (1) URI (upper respiratory infection): Status: Acute Plan: Declining all POC screening upon offering. Medrol and Benzonatate as prescribed today. Supportive measures as instructed today. Follow-up with PCP in 5 to 7 days should symptoms not improve, ED sooner shoul (more content not included)... Normal [facility] Absolute lymphocyte countOrd ered By: Gay Mcfarlane on 09-08-2023 Lymphocytes Auto (Unsp spec) [#/Vol] 2.65 10*3/uL 0.83-4.51 [facility] Basophil percentageOrdered B y: Gay Mcfarlane on 09-08-2023 Basophils/100 WBC (Bld) 1.4 % 0-1 [facility] Eosinophils/100 WBC (Bld) 2.0 % 0-5 [facility] Neutrophils (Bld) [#/Vol] 3.0 10*3/uL 2.0-7.7 [facility] Neutrophils/100 WBC (Bld) 47.2 % 47-70 [facility] WBC (Bld) [#/Vol] 6.4 10*3/uL 4.4-11.0 [facility] Blood erythrocytes count (nu mber/volume)Ordered By: Gay Mcfarlane on 09-08-2023 RBC (Bld) [#/Vol] 4.45 10*6/uL 4.2-5.4 [facility] Blood hemoglobin measurement (mass/volume)Ordered By: Gay Mcfarlane on 09-08-2023 Hemoglobin (Bld) [Mass/Vol] 12.9 g/dL 12.0-15.0 [facility] Blood lymphocytes/100 leukoc ytesOrdered By: Gay Mcfarlane on 09-08-2023 Lymphocytes/100 WBC (Bld) 41.4 % 19-41 [facility] Blood monocytes/100 leukocyt esOrdered By: Gay Mcfarlane on 09-08-2023 Monocytes/100 WBC (Bld) 7.8 % 0-10 [facility] Blood platelet mean volumeOr dered By: Gay Mcfarlane on 09-08-2023 Platelet mean volume (Bld) [Entitic vol] 10.2 fL 6.2-12.0 [facility] Determination of erythrocyte mean corpuscular volume (MCV)Ordered By: Gay Mcfarlane on 09-08-2023 MCV (RBC) [Entitic vol] 89.9 fL 81-99 [facility] Hematocrit Auto (Bld) [Volum e fraction]Ordered By: Gay Mcfarlane on 09-08-2023 Hematocrit (Bld) [Volume fraction] 40.0 % 37-47 [facility] Laboratory - Hematology and Cell countsOrdered By: Gay Mcfarlane on 09-08-2023 Erythrocyte distribution width (RBC) [Entitic vol] 39.4 fL 35.1-43.9 [facility] Erythrocyte distribution width (RBC) [Ratio] 11.9 % 11.6-14.6 [facility] Immature granulocytes/100 WBC (Bld) 0.200 % 0.0-0.9 [facility] Comment on above: IG% - Immature Granu locytes (promyelocytes, myelocytes and metamyelocytes) > 1% indicates that a LEFT SHIFT is Present. MCH (RBC) [Entitic mass] 29.0 pg 27.0-32.0 [facility] Nucleated RBC/100 WBC (Bld) [Ratio] 0 % 0-5 [facility] Auto (RBC) [Mass/Vol]Or dered By: Gay Carlospollo on 09-08-2023 MCHC (RBC) [Mass/Vol] 32.3 g/dL 32-36 [facility] No Panel InformationOrdered By: Gaymehreen Mcfarlane on 09-08-2023 Thyroid Stimulating Hormone (TSH) 1.41 uIU/mL 0.358-3.74 [facility] Platelets bldOrdered By: Hammad Mcfarlane on 09-08-2023 Platelets (Bld) [#/Vol] 321 10*3/uL 150-450 [facility] EXTRUDING MACHINE OPERATOR - Office Visiton 05-21 EXTRUDING MACHINE OPERATOR - 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 Annual 2. Screening mammogram 3. Contraceptive counseling Will renew the control pills. Follow-up in 1 year or as needed. Chief Complaint PATIENT IS HERE FOR YEARLY EXAM AND PAP TEST. LMP: 06/02/23. PATIENT DOES SELF BREAST EXAMS AND HAS NO CONCERNS AT THIS TIME. History of Present IllnessPresents for annual exam. She voices no complaints and is doing well. Denies any bowel or bladder problems. Denies any breast problems. She is doing well on the control pills. Review of Systems Review of Systems: Constitutional: No fever or chills Respiratory: No shortness of breath, or cough Cardiovascular: No chest pain or syncope Breasts: No breast pain, no masses, no nipple discharge Gastrointestinal: No nausea, vomiting, or diarrhea, no abdominal pain Genitourinary: No dysuria or frequency Gynecology: Negative except as noted in history of present illness All other: All other systems reviewed and negative for complaint Active Problems Problems Abnormal mammogram (793.80) (R92.8) BMI 24.0-24.9, adult (V85.1) (Z68.24) Encounter for Papanicolaou smear of cervix (V76.2) (Z12.4) Encounter for screening mammogram for breast cancer (V76.12) (Z12.31) Menorrhagia with irregular cycle (626.2) (N92.1) Right shoulder pain (719.41) (M25.511) Screen for colon cancer (V76.51) (Z12.11) Screening for lipid disorders (V77.91) (Z13.220) Screening for thyroid disorder (V77.0) (Z13.29) Women's annual routine gynecological examination (V72.31) (Z01.419) Past Medical History Problems History of mammogram (V15.89) (Z92.89) 08/23/2017: WNL History of miscarriage (V13.29) (Z87.59) 2000 History of Menstruation Onset age 14 years History of NVD (normal vaginal delivery) (650) (O80) 04/22/2001_40weeks 6days_Female_7# 11oz 07/18/2003_40weeks 1day_Female_7# 3oz 12/27/2005_38weeks 2days_Male_7# 6oz History of Pap test, as part of routine gynecological examination (V76.2) (Z01.419) 06/05/2022: CoTest Negative 05/23/2021: Negative 09/02/2018: Negative Surgical History Problems History of Colonoscopy Managed By: Connie Etienne (General Surgery) Repeat 5 years Family History Mother Family history of hypothyroidism (V18.19) (Z83.49) Father Family history of hyperlipidemia (V18.19) (Z83.438) Family history of hypertension (V17.49) (Z82.49) Grandparent Family history of hypothyroidism (V18.19) (Z83.49) Family history of malignant neoplasm of colon (V16.0) (Z80.0) Family history of malignant neoplasm of stomach (V16.0) (Z80.0) Aunt Family history of hypothyroidism (V18.19) (Z83.49) Social History Problems Never a smoker No advance directives (V49.89) (Z78.9) No recent foreign travel Sexually active Allergies Medication erythromycin Gatrointestinal upset; Updated By: Vera Foss; 04/04/2020 3:41:03 PM Current Meds Medication NameInstruction Drospirenone-Ethinyl Estradiol 3-0.03 MG Oral TabletTAKE 1 TABLET DAILY. Vitals Vital Signs Recorded: [id number] 08:31AM Izhclfai014 Nbeztuiaq49 Height5 ft 6 in Piybhy230 lb BMI Usjlnodqwm31.95 kg/m2 BSA Calculated1.85 Tobacco Useb) No Falls Screening (Age 18+)a) No falls within the last year Physical Exam PHYSICAL EXAMINATION: Well-developed, well nourished, in no acute distress, alert and oriented x three, is pleasant and cooperative. HEENT: Clear. Pupils equal, round and reactive to light and accommodation. Extraocular muscles are intact. Oral mucosa pink without exudate. NECK: No lymphadenopathy, no thyromegaly. BREASTS: Symmetric, no palpable masses. No nipple discharge or retraction. LUNGS: Clear bilaterally. HEART: Regular rate and rhythm without murmurs. ABDOMEN: Normoactive bowel sounds, soft and nontender, no guarding or rebound tenderness, no CVA tenderness. EXTREMITIES: No clubbing, cyanosis or edema. NEUROLOGIC: Cranial nerves II-XII grossly intact. : Normal external female genitalia, normal vulva, normal vagina. Normal urethral meatus, urethra and bladder. Normal appearing cervix. Normal-sized uterus, no adnexal masses or tenderness. Pap smear performed today. Signatures Electronically signed by : Frida Artis MD; Jun 07 2023 8:45AM EST (Author) Normal [employer] Tobacco Screening.on 023 Fall risk assessment a) No falls within the last year [facility] Work Phone: Tobacco use status [facility] b) No [facility] Work Phone: Colonoscopyon 08-24-2022 Colonoscopy PATIENTNAME Patient Name: Steven Real EXAMDATE Procedure Date: 08/24/2022 8:31 AM PATIENTID PATIENTACCOUNTNUM PATIENTDOB Date of : 1975 ADMITTYPE Admit Type: Outpatient PATIENTROOM Site: [facility]NIC[facility] Ethnicity: Not or RACE Race: White PROVDR Attending MD: Connie Etienne MD, [id number] ENDOPROCEDURENAME Procedure: Colonoscopy INDICATION Indications: Screening for colorectal malignant neoplasm, Family history of colon cancer in a distant relative PRIMARYPROVIDER Providers: Connie Etienne MD (Doctor), Noah Katz RN (Nurse), Aileen Solis, Fitness Center Attendant EDREFPROVIDER Referring: CURRENT_MEDS Medicines: Midazolam 6 mg IV, Fentanyl 75 micrograms IV, Glucagon 1 mg IV COMPLIC Complications: No immediate complications. ENDOPROCEDURETEXT Procedure: Pre-Anesthesia Assessment: - Prior to the procedure, a History and Physical was performed, and patient medications and allergies were reviewed. The patient is competent. The risks and benefits of the procedure and the sedation options and risks were discussed with the patient. All questions were answered and informed consent was obtained. Patient identification and proposed procedure were verified by the physician in the pre-procedure area. Mental Status Examination: alert and oriented. Airway Examination: normal oropharyngeal airway and neck mobility. Respiratory Examination: clear to auscultation. CV Examination: normal. Prophylactic Antibiotics: The patient does not require prophylactic antibiotics. Prior Anticoagulants: The patient has taken no anticoagulant or antiplatelet agents. ASA Grade Assessment: II - A patient with mild systemic disease. After reviewing the risks and benefits, the patient was deemed in satisfactory condition to undergo the procedure. The anesthesia plan was to use moderate sedation / analgesia (conscious sedation). Immediately prior to administration of medications, the patient was re-assessed for adequacy to receive sedatives. The heart rate, respiratory rate, oxygen saturations, blood pressure, adequacy of pulmonary ventilation, and response to care were monitored throughout the procedure. The physical status of the patient was re-assessed after the procedure. After I obtained informed consent, the scope was passed under direct vision. Throughout the procedure, the patient's blood pressure, pulse, and oxygen saturations were monitored continuously. The Colonoscope was introduced through the anus and advanced to the cecum, identified by appendiceal orifice and ileocecal valve. The colonoscopy was performed without difficulty. The patient tolerated the procedure well. The quality of the bowel preparation was excellent. The ileocecal valve, appendiceal orifice, and rectum were photographed. FINDING Findings: The perianal and digital rectal examinations were normal. The sigmoid colon was moderately tortuous and cecum was floppy. Advancing the scope required straightening and shortening the scope to obtain bowel loop reduction. The exam was otherwise without abnormality on direct and retroflexion views. SEDATION Moderate Sedation: Moderate (conscious) sedation was administered by the nurse and supervised by the endoscopist. The patient's oxygen saturation, heart rate, blood pressure and response to care were monitored. Total physician intraservice time was 21 minutes. EBL Estimated Blood Loss: Estimated blood loss: none. IMPRESS Impression: - Tortuous sigmoid colon and floppy cecum, otherwise normal colon. - The examination was otherwise normal on direct and retroflexion views. Excellent bowel prep. - No specimens collected. ENDORECOMMENDATION Recommendation: - Discharge patient to home. - Resume previous diet. - Continue present medications. - Repeat colonoscopy in 5 years for screening purposes given family history of colon cancer. CPT_CODES Procedure Code(s): --- Professional --- 46583, Colonoscopy, flexible; diagnostic, including collection of specimen(s) by brushing or washing, when performed (separate procedure) G0500, Moderate sedation services provided by the same physician or other qualified health health care facilities inspector performing a gastrointestinal endoscopic service that sedation supports, requiring the presence of an independent trained observer to assist in the monitoring of the patient's level of consciousness and physiological status; initial 15 minutes of intra-service time; patient age 5 years or older (additional time may be reported with 34778, as appropriate) ICD_CODES Diagnosis Code(s): --- Professional --- Z12.11, Encounter for screening for malignant neoplasm of colon Z80.0, Family history of malignant neoplasm of digestive organs Q43.8, Other specified congenital malformations of intestine CODINGSTMT CPT copyri (more content not included)... Normal [facility] Order Reconciliationon 08-24 Order Reconciliation Page 1 Discharge Reconciliation Document Reconciliation Type: Discharge requested on behalf of Connie Etienne (Physician) done by Connie Etienne) Discharge - Reconciliation: 24-Aug-2022 07:28 by: Connie Etienne) Home Medications EnteredHOME MEDICATIONS AT DISCHARGE DateReconciliation Comment/ Additional Information drospirenone-ethinyl estradiol 3 mg-0.03 mg oral tablet 1 tab(s) orally once a day 19-Aug-2022 13:09 drospirenone-ethinyl estradiol 3 mg-0.03 mg oral tablet 1 tab(s) orally once a day 19-Aug-2022 13:09 drospirenone-ethinyl estradiol 3 mg-0.03 mg oral tablet is continued as drospirenone-ethinyl estradiol 3 mg-0.03 mg oral tablet Home Medications Added During Discharge Reconciliation Activity as Tolerated 24-Aug-2022, Routine, Assistance Level: None, Restrictions: None Additional Patient Instructions Do not consume alcoholic beverages for 24 hours. Additional Patient Instructions Do not make important decisions or sign any important documents for the next 24 hours. Additional Patient Instructions Do not smoke for 24 hours. Call Physician For: excessive bleeding Call Physician For: inability to urinate Call Physician For: persistant nausea and/or vomiting Over 24 hours Call Physician For: signs and sypmtoms of infection Diet Regular Discharge Discharge Diagnosis< Z12.11 Colon cancer screening Discharge Provider, Connie Etienne Discharge Disposition : .Home Condition at Discharge: Satisfactory Discharge Communication Instructions for Nursing Only: Remove IV prior to discharge from hospital. Do not remove any midline, if present, without an order from the provider. Discharge Instructions - PHR After your discharge from the hospital, two Summary of Care Documents will be available online in your Personal Health Record (PHR). 1.Consolidated-Clinical Document Architecture (C-CDA) Patient Discharge Summary This document is a summary of your hospital stay to be kept for your reference.2.C-CDA Visit Summary This document is a summary of your hospital stay to be shared with your follow-up providers (doctor, benzene washer, physical therapist, etc.). May shower Post Procedure Discharge Criteria Criteria: Easily arousable / responding appropriately; Significant complications are absent; SpO2 = or > 92%, or if SpO2 < 92%, maintains within 2% of baseline; Vital signs +/- 20% of preprocedure status; Ambulates without dizziness / age appropriate activity and ambulatory status returns to pre-procedure baseline. All Active Home Medications at time of Discharge Reconciliation: 24-Aug-2022 07:28 Activity as Tolerated 24-Aug-2022, Routine, Assistance Level: None, Restrictions: None Additional Patient Instructions Do not consume alcoholic beverages for 24 hours. Additional Patient Instructions Do not make important decisions or sign any important documents for the next 24 hours. Additional Patient Instructions Do not smoke for 24 hours. Call Physician For: excessive bleeding Call Physician For: inability to urinate Call Physician For: persistant nausea and/or vomiting Over 24 hours Call Physician For: signs and sypmtoms of infection Diet Regular Discharge Discharge Diagnosis< Z12.11 Colon cancer screening Discharge Provider, Connie Etienne Discharge Disposition : .Home Condition at Discharge: Satisfactory Discharge Communication Instructions for Nursing Only: Remove IV prior to discharge from hospital. Do not remove any midline, if present, without an order from the provider. Discharge Instructions - PHR After your discharge from the hospital, two Summary of Care Documents will be available online in your Personal Health Record (PHR). 1.Consolidated-Clinical Document Architecture (C-CDA) Patient Discharge Summary This document is a summary of your hospital stay to be kept for your reference.2.C-CDA Visit Summary This document is a summary of your hospital stay to be shared with your follow-up providers (doctor, benzene washer, physical therapist, etc.). drospirenone-ethinyl estradiol 3 mg-0.03 mg oral tablet 1 tab(s) orally once a day May shower Post Procedure Discharge Criteria Criteria: Easily arousable / responding appropriately; Significant complications are absent; SpO2 = or > 92%, or if SpO2 < 92%, maintains within 2% of baseline; Vital signs +/- 20% of preprocedure status; Ambulates without dizziness / age appropriate activity and ambulatory status returns to pre-procedure baseline. Normal [facility] CBC AND DIFFERENTIALon 07-22 % AUTOMATED IMMATURE GRAN 0.2 % Normal 0.0 - 0.9 [facility] Comment on above: Result Comment: Naina ture Granulocyte Count (IG) includes promyelocytes, myelocytes and metamyelocytes but does not include bands. Percent differential counts (%) should be interpreted in the context of the absolute cell counts (cells/L). Performed By: #### C BCDF #### [id number] [place] [address] Basophils (Bld) [#/Vol] 0.08 10*3/uL Normal 0.00 - 0.10 [facility] Comment on above: Performed By: #### C BCDF #### [address] [address] Basophils/100 WBC (Bld) 1.6 % Normal 0.0 - 2.0 [facility] Comment on above: Performed By: #### C BCDF #### [address] [address] Eosinophils (Bld) [#/Vol] 0.08 10*3/uL Normal 0.00 - 0.70 [facility] Comment on above: Performed By: #### C BCDF #### [address] [address] Eosinophils/100 WBC (Bld) 1.6 % Normal 0.0 - 6.0 [facility] Comment on above: Performed By: #### C BCDF #### [address] [address] Erythrocyte distribution width (RBC) [Ratio] 11.9 % Normal 11.5 - 14.5 [facility] Comment on above: Performed By: #### C BCDF #### [address] [address] Hematocrit (Bld) [Volume fraction] 42.5 % Normal 36.0 - 46.0 [facility] Comment on above: Performed By: #### C BCDF #### [address] [address] Hemoglobin (Bld) [Mass/Vol] 13.4 g/dL Normal 12.0 - 16.0 [facility] Comment on above: Performed By: #### C BCDF #### [address] [address] Lymphocytes (Bld) [#/Vol] 1.84 10*3/uL Normal 1.20 - 4.80 [facility] Comment on above: Performed By: #### C BCDF #### [address] [address] Lymphocytes/100 WBC (Bld) 36.1 % Normal 13.0 - 44.0 [facility] Comment on above: Performed By: #### C BCDF #### [address] [address] MCHC (RBC) [Mass/Vol] 31.5 g/dL Low 32.0 - 36.0 [facility] Comment on above: Performed By: #### C BCDF #### [address] [address] MCV (RBC) [Entitic vol] 92 fL Normal 80 - 100 [facility] Comment on above: Performed By: #### C BCDF #### [address] [address] Monocytes (Bld) [#/Vol] 0.38 10*3/uL Normal 0.10 - 1.00 [facility] Comment on above: Performed By: #### C BCDF #### [address] [address] Monocytes/100 WBC (Bld) 7.5 % Normal 2.0 - 10.0 [facility] Comment on above: Performed By: #### C BCDF #### [address] [address] Neutrophils (Bld) [#/Vol] 2.71 10*3/uL Normal 1.20 - 7.70 [facility] Comment on above: Result Comment: Perc ent differential counts (%) should be interpreted in the context of the absolute cell counts (cells/L). Performed By: #### C BCDF #### [address] [address] Neutrophils/100 WBC (Bld) 53.0 % Normal 40.0 - 80.0 [facility] Comment on above: Performed By: #### C BCDF #### [address] [address] Platelets (Bld) [#/Vol] 337 10*3/uL Normal 150 - 450 [facility] Comment on above: Performed By: #### C BCDF #### [address] [address] RBC 4.64 x10E12/L Normal 4.00 - 5.20 [facility] Comment on above: Performed By: #### C BCDF #### [address] [address] WBC (Bld) [#/Vol] 5.1 10*3/uL Normal 4.4 - 11.3 [facility] Comment on above: Performed By: #### C BCDF #### [address] [address] COMPREHENSIVE PANELon 2021 Albumin [Mass/Vol] 4.0 g/dL Normal 3.4 - 5.0 [facility] Comment on above: Performed By: #### C MP #### [address] [address] ALP [Catalytic activity/Vol] 59 U/L Normal 33 - 110 [facility] Comment on above: Performed By: #### C MP #### [address] [address] ALT [Catalytic activity/Vol] 11 U/L Normal 7 - 45 [facility] Comment on above: Result Comment: Alexa ents treated with Sulfasalazine may generate falsely decreased results for ALT. Performed By: #### C MP #### [address] [address] Anion gap [Moles/Vol] 11 mmol/L Normal 10 - 20 [facility] Comment on above: Performed By: #### C MP #### [address] [address] AST [Catalytic activity/Vol] 13 U/L Normal 9 - 39 [facility] Comment on above: Performed By: #### C MP #### [address] [address] Bilirubin [Mass/Vol] 1.0 mg/dL Normal 0.0 - 1.2 [facility] Comment on above: Performed By: #### C MP #### [address] [address] Calcium [Mass/Vol] 9.2 mg/dL Normal 8.6 - 10.3 [facility] Comment on above: Performed By: #### C MP #### [address] [address] Chloride [Moles/Vol] 105 mmol/L Normal 98 - 107 [facility] Comment on above: Performed By: #### C MP #### [address] [address] Creatinine [Mass/Vol] 0.92 mg/dL Normal 0.50 - 1.05 [facility] Comment on above: Performed By: #### C MP #### [address] [address] GFR/1.73 sq M.predicted among non-blacks MDRD (S/P/Bld) [Vol rate/Area] 78 mL/min/{1.73_m2} Normal >90 [facility] Comment on above: Result Comment: CALC ULATIONS OF ESTIMATED GFR ARE PERFORMED USING THE 2020 CKD-EPI STUDY REFIT EQUATION WITHOUT THE RACE VARIABLE FOR THE IDMS-TRACEABLE CREATININE METHODS. https://jasn.asnjournals.org/content/early//ASN.74166 27068 Performed By: #### C MP #### [address] [address] Glucose [Mass/Vol] 83 mg/dL Normal 74 - 99 [facility] Comment on above: Performed By: #### C MP #### [address] [address] HCO3 (Bld) [Moles/Vol] 27 mmol/L Normal 21 - 32 [facility] Comment on above: Performed By: #### C MP #### [address] [address] Potassium [Moles/Vol] 3.9 mmol/L Normal 3.5 - 5.3 [facility] Comment on above: Performed By: #### C MP #### [address] [address] Protein [Mass/Vol] 6.9 g/dL Normal 6.4 - 8.2 [facility] Comment on above: Performed By: #### C MP #### [address] [address] Sodium [Moles/Vol] 139 mmol/L Normal 136 - 145 [facility] Comment on above: Performed By: #### C MP #### [address] [address] Urea nitrogen [Mass/Vol] 10 mg/dL Normal 6 - 23 [facility] Comment on above: Performed By: #### C MP #### [address] [address] Complete Blood Count + Diffe michael 07-22-2022 Basophils/100 WBC (Bld) 1.6 % 0.0 - 2.0 [facility] 205 DO Work Phone: Erythrocyte distribution width (RBC) [Ratio] 11.9 % See Below [facility] 205 DO Work Phone: Comment on above: Reference Range: 11. 5 - 14.5 Hematocrit (Bld) [Volume fraction] 42.5 % See Below [facility] 205 DO Work Phone: Comment on above: Reference Range: 36. 0 - 46.0 Hemoglobin (Bld) [Mass/Vol] 13.4 g/dL See Below [facility] 205 DO Work Phone: Comment on above: Reference Range: 12. 0 - 16.0 Lymphocytes/100 WBC (Bld) 36.1 % See Below [facility] 205 DO Work Phone: Comment on above: Reference Range: 13. 0 - 44.0 MCHC (RBC) [Mass/Vol] 31.5 g/dL below low threshold See Below [facility] 205 DO Work Phone: Comment on above: Reference Range: 32. 0 - 36.0 MCV (RBC) [Entitic vol] 92 fL 80 - 100 [facility] 205 DO Work Phone: Monocytes/100 WBC (Bld) 7.5 % 2.0 - 10.0 [facility] 205 DO Work Phone: Neutrophils/100 WBC (Bld) 53.0 % See Below [facility] 205 DO Work Phone: Comment on above: Reference Range: 40. 0 - 80.0 Platelets (Bld) [#/Vol] 337 10*3/uL 150 - 450 [facility] 205 DO Work Phone: RBC (Bld) [#/Vol] 4.64 {x10E12/L} See Below [facility] 205 DO Work Phone: Comment on above: Reference Range: 4.0 0 - 5.20 WBC (Bld) [#/Vol] 5.1 10*3/uL 4.4 - 11.3 [facility] RH 205 DO Work Phone: Complete Blood Count + Differential 0.08 {x10E9/L} See Below [facility] Services[facility] 205 DO Work Phone: Comment on above: Reference Range: 0.0 0 - 0.10 Reference Range: 0.0 0 - 0.70 Complete Blood Count + Differential 0.38 {x10E9/L} See Below [facility] 205 DO Work Phone: Comment on above: Reference Range: 0.1 0 - 1.00 Complete Blood Count + Differential 1.84 {x10E9/L} See Below [facility] 205 DO Work Phone: Comment on above: Reference Range: 1.2 0 - 4.80 Complete Blood Count + Differential 2.71 {x10E9/L} See Below [facility] 205 DO Work Phone: Comment on above: Reference Range: 1.2 0 - 7.70 Percent differential counts (%) should be interpreted in the context of the absolute cell counts (cells/L). Complete Blood Count + Differential 1.6 % 0.0 - 6.0 [facility] [employer] [facility] 205 DO Work Phone: Complete Blood Count + Differential 0.2 % 0.0 - 0.9 [facility] 205 DO Work Phone: Comment on above: Immature Granulocyte Count (IG) includes promyelocytes, myelocytes and metamyelocytes but does not include bands. Percent differential counts (%) should be interpreted in the context of the absolute cell counts (cells/L). LIPID PANEL (CORONARY RISK 2 )on 07-22-2022 Cholesterol [Mass/Vol] 237 mg/dL High 0 - 199 [facility] Comment on above: Result Comment: . AGE DESIRABLE BORDERLINE HIGH HIGH 0-19 Y 0 - 169 170 - 199 >/= 200 20-24 Y 0 - 189 190 - 224 >/= 225 >24 Y 0 - 199 200 - 239 >/= 240 All ranges are based on fasting samples. Specific therapeutic targets will vary based on patient-specific cardiac risk. . Pediatric guidelines reference:Pediatrics 2011, 128(S5). Adult guidelines reference: NCEP ATPIII Guidelines, JUAN MIGUEL 2001, 258:2486-97 . Venipuncture immediately after or during the administration of Metamizole may lead to falsely low results. Testing should be performed immediately prior to Metamizole dosing. Performed By: #### L IPID #### [place] [address] Cholesterol in HDL [Mass/Vol] 105.0 mg/dL Normal [facility] Comment on above: Result Comment: . AGE VERY LOW LOW NORMAL HIGH 0-19 Y < 35 < 40 40-45 ---- 20-24 Y ---- < 40 >45 ---- >24 Y ---- < 40 40-60 >60 . Performed By: #### L IPID #### [address] [address] Cholesterol in LDL [Mass/Vol] 99 mg/dL Normal 0 - 99 [facility] Comment on above: Result Comment: . NEAR BORD AGE DESIRABLE OPTIMAL HIGH HIGH VERY HIGH 0-19 Y 0 - 109 --- 110-129 >/= 130 ---- 20-24 Y 0 - 119 --- 120-159 >/= 160 ---- >24 Y 0 - 99 100-129 130-159 160-189 >/=190 . Performed By: #### L IPID #### [address] [address] Cholesterol in VLDL [Mass/Vol] 33 mg/dL Normal 0 - 40 [facility] Comment on above: Performed By: #### L IPID #### [address] [address] Cholesterol.total/Chol esterol in HDL [Mass ratio] 2.3 {ratio} Normal [facility] Comment on above: Result Comment: REF VALUES DESIRABLE < 3.4 HIGH RISK > 5.0 Performed By: #### L IPID #### [address] [address] Triglyceride [Mass/Vol] 163 mg/dL High 0 - 149 [facility] Comment on above: Result Comment: . AGE DESIRABLE BORDERLINE HIGH HIGH VERY HIGH 0 D-90 D 19 - 174 ---- ---- ---- 91 D- 9 Y 0 - 74 75 - 99 >/= 100 ---- 10-19 Y 0 - 89 90 - 129 >/= 130 ---- 20-24 Y 0 - 114 115 - 149 >/= 150 ---- >24 Y 0 - 149 150 - 199 200- 499 >/= 500 . Venipuncture immediately after or during the administration of Metamizole may lead to falsely low results. Testing should be performed immediately prior to Metamizole dosing. Performed By: #### L IPID #### [address] [address] Laboratory - Chemistry and C hemistry - challengeon 07-22-2022 Albumin BCP dye [Mass/Vol] 4.0 g/dL 3.4 - 5.0 -[facility] [place] [address] DO Work Phone: ALP [Catalytic activity/Vol] 59 U/L 33 - 110 -[facility] [place] [address] DO Work Phone: ALT With P-5'-P [Catalytic activity/Vol] 11 U/L 7 - 45 -[facility] [place] [address] DO Work Phone: Comment on above: Patients treated wit h Sulfasalazine may generate falsely decreased results for ALT. Anion gap [Moles/Vol] 11 mmol/L 10 - 20 - [facility] [place] [address] DO Work Phone: AST With P-5'-P [Catalytic activity/Vol] 13 U/L 9 - 39 -[facility] [place] [address] DO Work Phone: Bilirubin [Mass/Vol] 1.0 mg/dL 0.0 - 1.2 MP[facility] [place] [address] DO Work Phone: Calcium [Mass/Vol] 9.2 mg/dL 8.6 - 10.3 MP-[facility] [place] [address] DO Work Phone: Chloride [Moles/Vol] 105 mmol/L 98 - 107 [facility] [place] [address] DO Work Phone: CO2 [Moles/Vol] 27 mmol/L 21 - 32 [facility] [place] [address] DO Work Phone: Creatinine [Mass/Vol] 0.92 mg/dL See Below - [facility] [place] [address] DO Work Phone: Comment on above: Reference Range: 0.5 0 - 1.05 Glucose [Mass/Vol] 83 mg/dL 74 - 99 MP-Cla kaci t [facility] 205 DO Work Phone: Potassium [Moles/Vol] 3.9 mmol/L 3.5 - 5.3 [facility] Nataliia clark [facility] 205 DO Work Phone: Protein [Mass/Vol] 6.9 g/dL 6.4 - 8.2 [facility]ITALSumaya clark [facility] Tomer DO Work Phone: Sodium [Moles/Vol] 139 mmol/L 136 - 145 [facility]ITALSumaya clark [facility] Tomer DO Work Phone: TSH Qn 1.25 m[IU]/L See Below Stephanie clark [facility] Tomer DO Work Phone: Comment on above: Reference Range: 0.4 4 - 3.98 TSH testing is performed using different testing methodology at [facility] than at [facility]. Direct result comparisons should only be made within the same method. Urea nitrogen [Mass/Vol] 10 mg/dL 6 - 23 [facility]ITALNataliia clark [place] [address] DO Work Phone: Lipid Panelon 07-22-2022 Cholesterol [Mass/Vol] 237 mg/dL above hig h threshold 0 - 199 [facility]ITALNataliia clark [place] [address] DO Work Phone: Comment on above: . AGE DESIRABLE BORD HETAL HIGH HIGH 0-19 Y 0 - 169 170 - 199 >/= 200 20-24 Y 0 - 189 190 - 224 >/= 225 >24 Y 0 - 199 200 - 239 >/= 240 All ranges are based on fasting samples. Specific therapeutic targets will vary based on patient-specific cardiac risk.. Pediatric guidelines reference:Pediatrics 2011, 128(S5). Adult guidelines reference: NCEP ATPIII Guidelines, JUAN MIGUEL 2001, 258:2486-97. Venipuncture immediately after or during the administration of Metamizole may lead to falsely low results. Testing should be performed immediately prior to Metamizole dosing. Cholesterol in HDL [Mass/Vol] 105.0 mg/dL [employer] [place] [address] DO Work Phone: Comment on above: . AGE VERY LOW LOW N ORMAL HIGH 0-19 Y < 35 < 40 40-45 ---- 20-24 Y ---- < 40 >45 ---- >24 Y ---- < 40 40-60 >60. Cholesterol in LDL [Mass/Vol] 99 mg/dL 0 - 99 [facility]Nano[facility] [place] [address] DO Work Phone: Comment on above: . NEAR BORD AGE TIMMY RABLE OPTIMAL HIGH HIGH VERY HIGH 0-19 Y 0 - 109 --- 110-129 >/= 130 ---- 20-24 Y 0 - 119 --- 120-159 >/= 160 ---- >24 Y 0 - 99 100-129 130-159 160-189 >/=190. Cholesterol.total/Chol esterol in HDL [Mass ratio] 2.3 {ratio} [facility] HospitalBusbudDonald [place] [address] DO Work Phone: Comment on above: REF VALUESDESIRABLE < 3.4HIGH RISK > 5.0 Triglyceride [Mass/Vol] 163 mg/dL above high threshold 0 - 149 [facility]NanoT[facility] [place] [address] DO Work Phone: Comment on above: . AGE DESIRABLE BORD HETAL HIGH HIGH VERY HIGH 0 D-90 D 19 - 174 ---- ---- ----91 D- 9 Y 0 - 74 75 - 99 >/= 100 ---- 10-19 Y 0 - 89 90 - 129 >/= 130 ---- 20-24 Y 0 - 114 115 - 149 >/= 150 ---- >24 Y 0 - 149 150 - 199 200- 499 >/= 500. Venipuncture immediately after or during the administration of Metamizole may lead to falsely low results. Testing should be performed immediately prior to Metamizole dosing. Lipid Panel 33 mg/dL 0 - 40 [facility]ITALNanoT[facility] [place] [address] DO Work Phone: No Panel Informationon 07-22 78 {mL/min/1.73m2} >90 S[facility]-Sumaya [facility] 205 DO Work Phone: Comment on above: CALCULATIONS OF MEERA MATED GFR ARE PERFORMED USING THE 2020 CKD-EPI STUDY REFIT EQUATION WITHOUT THE RACE VARIABLE FOR THE IDMS-TRACEABLE CREATININE METHODS.https://jasn.asnjournals.org/content//A SN.9442399837 Office Visit (Primary Care F ornv)on 07-22-2022 Follow-up visit Diagnosis/Problems Health Maintenance/Risks Encounter for preventive health examination (V70.0) (Z00.00) Assessed Screening for thyroid disorder (V77.0) (Z13.29) Screening for lipid disorders (V77.91) (Z13.220) Screen for colon cancer (V76.51) (Z12.11) BMI 24.0-24.9, adult (V85.1) (Z68.24) Orders Health Maintenance Complete Blood Count + Differential; Status:In Progress - Specimen/Data Collected; Done: 22Jul2022 Perform:Lab Services - Lab To Draw (Blood Test); Due:20Oct2022;Ordered; For:Health Maintenance; Ordered By:Yahaira Mixon; Comprehensive Metabolic Panel; Status:In Progress - Specimen/Data Collected; Done: 22Jul2022 Perform:Lab Services - Lab To Draw (Blood Test); Due:20Oct2022;Ordered; For:Health Maintenance; Ordered By:Yahaira Mixon; Vitamin D 25-Hydroxy; Status:In Progress - Specimen/Data Collected; Done: 22Jul2022 Perform:Lab Services - Lab To Draw (Blood Test); Due:20Oct2022;Ordered; For:Health Maintenance; Ordered By:Yahaira Mixon; Screen for colon cancer General Surgery Referral Evaluation and Treatment Evaluate AND Treat Status: Hold For - Scheduling Requested for: 22Jul2022 Ordered;For: Screen for colon cancer; Ordered By: Yahaira Mixon Performed: Due: 20Oct2022 Screening for lipid disorders Lipid Panel; Status:In Progress - Specimen/Data Collected; Done: 22Jul2022 Perform:Lab Services - Lab To Draw (Blood Test); Due:20Oct2022;Ordered; For:Screening for lipid disorders; Ordered By:Yahaira Mixon; Screening for thyroid disorder TSH WITH REFLEX TO FREE T4 IF ABNORMAL; Status:In Progress - Specimen/Data Collected; Done: 22Jul2022 Perform:Lab Services - Lab To Draw (Blood Test); Due:20Oct2022;Ordered; For:Screening for thyroid disorder; Ordered By:Yahaira Mixon; Patient Discussion/Summary Will get wellness labs and call with results. Follow up in 1 year for wellness exam or return sooner if needed. Chief Complaint Pt presents to establish new PCP; previous pt of Mohini Oliva CNP. History of Present Lhtyegy89 year old female here to establish care. She has no concerns today. Previous patient of Mohini Oliva CNP Social Hx: Tobacco: Denies ETOH: Caffeine: coffee Health maintenance: Wellness labs: needs Pap: gets done yearly with Dr. Artis Mammogram: May 2022 Colon cancer screen: needs; has family history of colon cancer in paternal grandmother Review of Systems Constitutional: not feeling tired. Cardiovascular: no chest pain, no palpitations, no lower extremity edema, no shortness of breath and no chest pressure. Gastrointestinal: no abdominal pain. Psychiatric: no mood changes. Active Problems Problems Abnormal mammogram (793.80) (R92.8) Encounter for Papanicolaou smear of cervix (V76.2) (Z12.4) Encounter for screening mammogram for breast cancer (V76.12) (Z12.31) Menorrhagia with irregular cycle (626.2) (N92.1) Right shoulder pain (719.41) (M25.511) Women's annual routine gynecological examination (V72.31) (Z01.419) Past Medical History Problems History of mammogram (V15.89) (Z92.89) 08/23/2017: WNL History of miscarriage (V13.29) (Z87.59) 1999 History of Menstruation Onset age 14 years History of NVD (normal vaginal delivery) (650) (O80) 04/22/2001_40weeks 6days_Female_7# 11oz 07/18/2003_40weeks 1day_Female_7# 3oz 12/27/2005_38weeks 2days_Male_7# 6oz History of Pap test, as part of routine gynecological examination (V76.2) (Z01.419) 06/05/2022: CoTest Negative 05/23/2021: Negative 09/02/2018: Negative Surgical History Problems No history of surgery Family History Mother Family history of hypothyroidism (V18.19) (Z83.49) Father Family history of hyperlipidemia (V18.19) (Z83.438) Family history of hypertension (V17.49) (Z82.49) Grandparent Family history of hypothyroidism (V18.19) (Z83.49) Family history of malignant neoplasm of colon (V16.0) (Z80.0) Family history of malignant neoplasm of stomach (V16.0) (Z80.0) Aunt Family history of hypothyroidism (V18.19) (Z83.49) Social History Problems Never a smoker No advance directives (V49.89) (Z78.9) No recent foreign travel Sexually active Current Meds Medication NameInstruction Drospirenone-Ethinyl Estradiol 3-0.03 MG Oral TabletTAKE 1 TABLET DAILY. Allergies Medication erythromycin Gatrointestinal upset; Updated By: Vera Foss; 04/04/2020 3:41:03 PM Vitals Vital Signs Recorded: 22Jul2022 08:36AM Heart Rate70 Pxiwvfsy524, LUE Ulwsikkio08, LUE Height5 ft 6 in Axdcfp905 lb 3 oz BMI Sajkqqslur77.89 kg/m2 BSA Calculated1.79 Tobacco Useb) No PHQ-2 #1. Over the last 2 weeks have you felt down, depressed or hopeless? (If yes, answer PHQ-9 below)No PHQ-2 #2. Over the last 2 weeks have you felt little interest or pleasure in doing things? (If yes, answer PHQ-9 below)No Falls Screening (Age 18+)a) No falls within the last year O2 Cleodwebir04 Physical Exam Constitutional - Well developed, well nourished, well hy (more content not included)... Normal [employer] TSH WITH REFLEX TO FREE T4 I F ABNORMALon 07-22-2022 TSH Qn 1.25 m[IU]/L Normal 0.44 - 3.98 [facility] Comment on above: Result Comment: TSH testing is performed using different testing methodology at [facility] than at [facility]. Direct result comparisons should only be made within the same method. Performed By: #### T HYDS #### [address] [address] Tobacco Screening.on Adult depression screening assessment No [facility]ITALNataliia clark [facility] 205 DO Work Phone: Fall risk assessment a) No falls within the last year [facility]mar[facility] a cl[facility] DO Work Phone: Tobacco use status CPHS b) No [facility]Nataliia clark [facility] 205 DO Work Phone: VITAMIN D, 25-HYDROXYon VITAMIN D, 25-HYDROXY 40 ng/mL Normal [facility] Comment on above: Result Comment: . DEFICIENCY: < 20 NG/ML INSUFFICIENCY: 20-29 NG/ML SUFFICIENCY: 30-100 NG/ML THIS ASSAY ACCURATELY QUANTIFIES THE SUM OF VITAMIN D3, 25-HYDROXY AND VIT D2,25-HYDROXY. Performed By: #### V TDOH #### [address] [address] Vitamin D 25-Hydroxyon 07-22 25-hydroxyvitamin D3 [Mass/Vol] 40 ng/mL [facility] Hospitalmarco a [place] [address] DO Work Phone: Comment on above: .DEFICIENCY: < 20 NG /MLINSUFFICIENCY: 20-29 NG/MLSUFFICIENCY: 30-100 NG/MLTHIS ASSAY ACCURATELY QUANTIFIES THE SUM OFVITAMIN D3, 25-HYDROXY AND VIT D2,25-HYDROXY. Mamm - Screening Mammogram w / Tomosynthes[employer] 06-01-2022 MG Breast Screening Normal [facility] [employer] Work Phone: Laboratory - Cytologyon Cytology report Cyto stain.thin prep Doc (Cvx/Vag) [facility] Center[facility] Work Phone: Tobacco Screening.on Adult depression screening assessment No [place] [address] [employer] Work Phone: Fall risk assessment a) No falls within the last year [employer] Work Phone: Last menstrual period start date 06May2022 [employer] Work Phone: Tobacco use status CPHS b) No [employer] Work Phone: HEPATITIS B SURFACE AGon HEP.B SURFACE AG Non-Reactive Normal NONREACTIVE [facility] Comment on above: Result Comment: Biot in interference may cause falsely decreased results. Patients taking a Biotin dose of up to 5 mg/day should refrain from taking Biotin for 24 hours before sample collection. Providers may contact their local laboratory for further information. Performed By: #### H BSAG #### [facility] [address] [place] [id number] HEPATITIS C ABon 01-30-2022 HEPATITIS C AB Non-Reactive Normal NONREACTIVE [facility] Comment on above: Result Comment: Resu lts from patients taking biotin supplements or receiving high-dose biotin therapy should be interpreted with caution due to possible interference with this test. Providers may contact their local laboratory for further information. Performed By: #### H CVAB #### [facility] [address] [place] [address] Lab Specimen Source Normal [facility] Comment on above: Performed By: #### H CVAB #### [facility] [address] [place] [address] Performed By: #### H BSAG #### [facility] [address] [place] [address] Performed By: #### H IV #### [facility] [address] [place] [address] HIV 1/2 ANTIGEN/ANTIBODY SCR EEN WITH REFLEX TO CONFIRMATIONon 01-30-2022 HIV 1/2 AG/AB SCREEN Non-Reactive Normal NONREACTIVE [facility] Comment on above: Result Comment: HIV Ag/Ab screen is performed using the Siemens iCentera HIV Ag/Ab Combo assay which detects the presence of HIV p24 antigen as well as antibodies to HIV-1 (Group M and O) and HIV-2. . No laboratory evidence of HIV infection. If acute HIV infection is suspected, consider testing for HIV RNA by PCR (viral load). Performed By: #### H IV #### [facility] [address] [address] Ultrasound Limited [place] 05-29-2021 MG Breast Screening Normal [facility] [employer] Work Phone: Mamm - Screening Mammogram w / Tomosynthesison 05-28-2021 MG Breast Screening Normal [facility] [employer] Work Phone: Laboratory - Cytologyon Cytology report Cyto stain.thin prep Doc (Cvx/Vag) [facility] [employer] Work Phone: Tobacco Screening.on Last menstrual period start date 13May2021 [employer] Work Phone: Tobacco use status CPHS b) No [employer] Work Phone: Otheron 04-05-2020 XR Shoulder 2 views Interpreted by: CARIDAD CORMIER04/06/20 14:53MRN: [id number] Name: STEVEN REAL STUDY:SHOULDER, CMPLT, MIN 2 VIEWS INDICATION:Rt shoulder pain s/p fall. COMPARISON:None ORDERING CLINICIAN:MOHINI OLIVA FINDINGS:No osseous, articular, or soft tissue abnormality. IMPRESSION:Normal radiographs of the right shoulder.Electronically signed by: FAVIO CORMIER 04/06/20 14:53 Normal [facility] [place] Work Phone: IGP W/hpv Rfx [id number] 09-09 Diagnosis: See Ref Lab Report Normal [facility] Comment on above: Order Comment: Thin Prep. LMP 08-12-2018 Performed By: #### 1 [id number] ####[place] [address] Pathology ([facility])on 09-02-2018 Pathology ([facility]) FINAL GYNECOLOGIC CYTOLOGY [id number] ADEQUACYSatisfactory for Evaluation. Endocervical cells/transformation zone componentpresent.GENERAL CATEGORIZATIONNegative for Intraepithelial Lesion or MalignancyCLINICAL HISTORYLMP: 08/12/2018SPECIMEN(A) SCREENING CERVICAL/ENDOCERVICAL THIN PREP VIALPerformed at [facility], [address], [place] [address] by: Signed Out by: SONY BLUM Central Control Room Operator Reported: 09/07/2018 Normal [facility] Healthcare Comment on above: Performed By: #### G YN ####[facility] [address] [place] [address] US Thyroidon 02-15-2018 US Thyroid Exam Date/Time:2017 09:56 EDTReason for Exam:ENLARGED THYROID;LumpReportTHYROI D ULTRASOUND:HISTORY: Thyroid enlargement.FINDINGS:RIG HT LOBE: Size: 4.8 x 1.3 x 1.4 cm.Two solid nodules are seen in this lobe as follows:1. Mid anterior 0.4 x 0.4 x 0.2 cm2. Mid anterior 0.6 x 0.3 x 0.3 cm.The echogenicity in the rest of the lobe is normal.LEFT LOBE: Size: 3.6 x 1.3 x 1.2 cm.The echogenicity is normal. There is no nodule seen.ISTHMUS: Size: 2 mm AP.IMPRESSION:Normal thyroid size.Benign-appearing solid nodules right lobe. FINAL REPORT Dictated: 02/15/2018 4:59 pm Kenneth Barth MD KSigned (Electronic Signature): 02/15/2018 4:59 pmSigned by: Kenneth Barth MD Technologist: BS Normal [facility] BMPon 02-02-2018 Creatinine mass conc 0.8 mg/dL Normal 0.6-1.3 [facility] Comment on above: Performed By: #### 2 [id number] ####HERMINIA [address] [place] [address] Urea nitrogen mass conc 12 mg/dL Normal 7-18 [facility] Comment on above: Performed By: #### 2 [id number] ####HERMINIA [address] [place] [address] Urea nitrogen/Creatinine mass ratio 15.0 ratio Normal 5.4-30.0 [facility] Comment on above: Performed By: #### 2 [id number] ####HERMINIA [address] [place] [address] Calcium mass conc 9.2 mg/dL Normal 8.4-10.[address] [facility] Comment on above: Performed By: #### 2 [id number] ####HERMINIA [address] [place] [address] Chloride molar conc 97 mmol/L Low 98-107 [facility] Comment on above: Performed By: #### 2 [id number] ####HERMINIA [address] [place] [address] CO2 molar conc 27.0 mmol/L Normal 24.0-30.0 [facility] Comment on above: Performed By: #### 2 [id number] ####HREMINIA [address] [place] [address] Glucose mass conc 79 mg/dL Normal 70-[address] [facility] Comment on above: Performed By: #### 2 [id number] ####HERMINIA [address] [place] [address] Potassium molar conc 3.8 mmol/L Normal 3.5-5.1 [facility] Comment on above: Performed By: #### 2 [id number] ####HERMINIA [address] [place] [address] Sodium molar conc 132 mmol/L Low 136-[address] [facility] Comment on above: Performed By: #### 2 [id number] ####HERMINIA [address] [place] [address] Free T4on 02-02-2018 T4 free mass conc 0.88 ng/dL Normal 0.58-1.[address] [facility] Comment on above: Result Comment: Alexa ents receiving more than 5mg/day of biotin may have interference in test results. A sample should be taken no sooner than eight hours after previous dose. Performed By: #### 2 [id number] ####HERMINIA [address] [place] [address] TSHon 02-02-2018 Thyrotropin Qn 1.16 mIU/m Normal 0.30-5.60 [facility] Comment on above: Performed By: #### 2 [id number] ####HERMINIA [address] [place] [address] eGFRon 02-02-2018 eGFR AA >60 Normal [facility] Comment on above: Order Comment: Order added by Discern Expert. Performed By: #### 1 [id number] ####HERMINIA [address] [place] [address] GFR/1.73 sq M predicted among non-blacks MDRD vol rate/area (S/P/Bld) mL/min/{1.73_m2} Normal [facility] Comment on above: Order Comment: Order added by Discern Expert. Performed By: #### 1 [id number] ####HERMINIA [address] [place] [address] Vital Signs Date Time Vital Sign Value Performing Clinician Facility 10-23-2024 14:13-0500 Body height 165.1 cm Rahat Villarreal MD Work Phone: [facility] 10-23-2024 14:13-0500 Body mass index (BMI) [Ratio] 28.3 kg/m2 Rahat Villarreal MD Work Phone: [facility] 10-23-2024 14:13-0500 Body weight 77.33 kg Rahat Villarreal MD Work Phone: [facility] 10-23-2024 14:13-0500 Diastolic blood pressure 79 mm[Hg] Rahat Villarreal MD Work Phone: [facility] 10-23-2024 14:13-0500 Systolic blood pressure 118 mm[Hg] Rahat Villarreal MD Work Phone: [facility] 09-21-2023 10:15-0500 Body weight 76.65 kg No Primary Care Physician [facility] 09-21-2023 10:15-0500 Diastolic blood pressure 82 mm[Hg] No Primary Care Physician [facility] 09-21-2023 10:15-0500 Systolic blood pressure 125 mm[Hg] No Primary Care Physician [facility] 06-07-2023 08:31-0400 Body height 167.64 cm Yahaira Mixon Work Phone: [place] [address] [address] Work Phone: 06-07-2023 08:31-0400 Body mass index (BMI) [Ratio] 26.95 kg/m2 Yahaira Mixon Work Phone: [address] Work Phone: 06-07-2023 08:31-0400 Body surface area Derived from formula 1.85 m2 Yahaira Mixon Work Phone: [address] Work Phone: 06-07-2023 08:31-0400 Body weight 75.75 kg Yahaira Mixon Work Phone: [address] Work Phone: 06-07-2023 08:31-0400 Diastolic blood pressure 72 mm[Hg] Yahaira Mixon Work Phone: [address] Work Phone: 06-07-2023 08:31-0400 Systolic blood pressure 124 mm[Hg] Yahaira Mixon Work Phone: [address] Work Phone: 07-22-2022 08:36-0400 Body height 167.64 cm Yahaira Mixon Work Phone: [facility] [address] Work Phone: 07-22-2022 08:36-0400 Body mass index (BMI) [Ratio] 24.89 kg/m2 Yahaiar Mixon Work Phone: [facility] [address] Work Phone: 07-22-2022 08:36-0400 Body surface area Derived from formula 1.79 m2 Yahaira Mixon Work Phone: [facility] [address] Work Phone: 07-22-2022 08:36-0400 Body weight 69.94 kg Yahaira Mixon Work Phone: [facility] [address] Work Phone: 07-22-2022 08:36-0400 Diastolic blood pressure 60 mm[Hg] Yahaira Mixon Work Phone: [facility] [address] Work Phone: 07-22-2022 08:36-0400 Heart rate 70 /min Yahaira Mixon Work Phone: [facility] [address] Work Phone: 07-22-2022 08:36-0400 SaO2% (BldA) [Mass fraction] 99 % Yahaira Mixon Work Phone: [facility] [address] Work Phone: 07-22-2022 08:36-0400 Systolic blood pressure 100 mm[Hg] Yahaira Mixon Work Phone: [facility] [address] Work Phone: 05-26-2022 13:58-0400 Body height 167.64 cm Mohini Oliva Work Phone: [address] Work Phone: 05-26-2022 13:58-0400 Body mass index (BMI) [Ratio] 24.73 kg/m2 Mohini Oliva Work Phone: [address] Work Phone: 05-26-2022 13:58-0400 Body surface area Derived from formula 1.79 m2 Mohini Oliva Work Phone: [place] [address] [address] Work Phone: 05-26-2022 13:58-0400 Body weight 69.5 kg Mohini Oliva Work Phone: [place] [address] [address] Work Phone: 05-26-2022 13:58-0400 Diastolic blood pressure 66 mm[Hg] Mohini Oliva Work Phone: [place] [address] [address] Work Phone: 05-26-2022 13:58-0400 Systolic blood pressure 116 mm[Hg] Mohini Oliva Work Phone: [place] [address] [address] Work Phone: 05-23-2021 11:03-0400 Body height 167.64 cm Mohini Oliva [address] Work Phone: 05-23-2021 11:03-0400 Body mass index (BMI) [Ratio] 25.37 kg/m2 Mohini Oliva [place] [address] [address] Work Phone: 05-23-2021 11:03-0400 Body surface area Derived from formula 1.81 m2 Mohini Oliva [place] [address] [address] Work Phone: 05-23-2021 11:03-0400 Body temperature 96.9 [degF] Mohini Oliva [place] [address] [address] Work Phone: 05-23-2021 11:03-0400 Body weight 71.3 kg Mohini Oliva [place] [address] [address] Work Phone: 05-23-2021 11:03-0400 Diastolic blood pressure 68 mm[Hg] Mohini Oliva [place] [address] [address] Work Phone: 05-23-2021 11:03-0400 Systolic blood pressure 112 mm[Hg] Mohini Oliva [address] Work Phone: 04-04-2020 17:39-0400 BMI (Body Mass Index) 27.6 kg/m2 [facility] Work Phone: 04-04-2020 17:39-0400 Body Temperature 98.6 [degF] Sergio Dew [facility] Work Phone: 04-04-2020 17:39-0400 Body weight 77.56 kg [facility] Work Phone: 04-04-2020 17:39-0400 BP Diastolic 72 mm[Hg] Sergio Dew [facility] Work Phone: Comment on above: Location: LUE; 04-04-2020 17:39-0400 BP Systolic 110 mm[Hg] [facility] Work Phone: Comment on above: Location: LUE; 04-04-2020 17:39-0400 BSA (Body Surface Area) 1.87 m2 [facility] Work Phone: 04-04-2020 17:39-0400 Height 167.64 cm [facility] Work Phone: 04-04-2020 17:39-0400 Pulse (Heart Rate) 72 /min [facility] Work Phone: Encounters Encounter Date Encounter Type Care Provider Facility Start: 02-14-2025 Registered Referred HEALTH RISK ASSE [facility] -Employee [facility] Start: 02-14-2025 End: 02-14-[address] Rahat Villarreal MD -Laboratory Work Phone: Start: 02-14-2025 End: 02-14-2025 ambulatory Health Risk Assessment Facility:[facility] Start: 12-07-2024 End: 12-07-2024 ambulatory Rahat Villarreal MD Work Phone: [facility] Work Phone: Start: 12-07-2024 End: 12-07-[address] Gay Mcfarlane MD -Outpatient Breast Imaging Work Phone: Start: 12-07-2024 End: 12-07-2024 ambulatory Gay Mcfarlane Facility:[facility] Start: 10-23-2024 End: 10-23-[address] Gay Mcfarlane MD -Laboratory, Specimen Work Phone: Start: 10-23-2024 Encounter for gynecological examination (general) (routine) with abnormal findings Gay Mcfarlane [facility] Start: 10-23-2024 End: 10-23-[address] Gay Mcfarlane MD -[facility] Work Phone: Start: 10-23-2024 End: 10-23-[address] Gay Mcfarlane MD [facility] Start: 10-23-2024 End: 10-23-2024 ambulatory Rahat Villarreal Facility:[facility] Start: 10-23-2024 End: 10-23-2024 ambulatory Gay Mcfarlane Facility:[facility] Start: 03-31-2024 End: 04-06-2024 ambulatory Rahat Villarreal Facility:[facility] Start: 03-27-2024 End: 03-27-2024 ambulatory Stalin MONTIEL Facility:[facility] Start: 09-21-2023 End: 09-21-2023 ambulatory No Primary Care Physician [facility] Work Phone: Start: 09-21-2023 End: 09-21-2023 Patient encounter procedure No Primary Care Physician [facility]-Laboratory, Specimen Work Phone: Start: 09-21-2023 End: 09-21-2023 Patient encounter procedure No Primary Care Physician [facility] Work Phone: Start: 09-09-2023 End: 09-09-2023 ambulatory [facility] Work Phone: Start: 09-09-2023 End: 09-09-2023 Patient encounter procedure [facility]-Ultrasound, [facility] Work Phone: Start: 09-08-2023 End: 09-08-2023 ambulatory [facility] Work Phone: Start: 09-08-2023 End: 09-08-2023 Patient encounter procedure [facility]-Laboratory Work Phone: Start: 06-07-2023 Periodic preventive med est patient 40-64yrs Yahaira K Oral Work Phone: [place] [address] [address] Work Phone: Start: 06-07-2023 ambulatory Ms. Yahaira Mixon Fac ility:[facility] Start: 04-19-2023 AUDIT Yahaira John Oral Work Phone: [place] [address] [address] Work Phone: Start: 08-24-2022 End: 08-24-[address] Connie Etienne Facility:[id number] Start: 07-23-2022 Chart Update Yahaira John Oral Work Phone: [facility] [address] Work Phone: Start: 07-22-2022 Periodic preventive med est patient 40-64yrs Yahaira John Oral Work Phone: [facility] [address] Work Phone: Start: 07-22-2022 ambulatory Ms. Yahaira Mixon Fac ility:[id number] Start: 06-05-2022 Chart Update Mohini george Work Phone: [facility] [employer] Work Phone: Start: 06-02-2022 Chart Update Mohini george Work Phone: [facility] [employer] Work Phone: Start: 06-01-2022 ambulatory Ms. Mohini Oliva Fac ility:[id number] Start: 05-26-2022 Periodic preventive med est patient 40-64yrs Mohini Oliva Work Phone: [facility] [address] Work Phone: Start: 03-30-2022 AUDIT Mohini Michaels e Work Phone: [facility] [address] Work Phone: Start: 12-16-2021 Image Encounter Mohini Oliva zz D O NOT USE - [facility] Only Start: 06-02-2021 Chart Update Mohini Oliva [facility] [address] Work Phone: Start: 05-30-2021 Chart Update Mohini Oliva [facility] [address] Work Phone: Start: 05-28-2021 AUDIT Mohini Oliva [facility] [address] Work Phone: Start: 05-23-2021 Periodic preventive med est patient 40-64yrs Mohini Oliva [facility] [address] Work Phone: Start: 04-14-2021 AUDIT Mohini Oliva [facility] [address] Work Phone: Start: 06-06-2020 Patient encounter procedure Juan Pinosandor [facility] Work Phone: Start: 06-05-2020 Patient encounter procedure Juan Austin [facility] Work [facility]: Start: 05-31-2020 Patient encounter [facility] Work Phone: Start: 05-29-2020 Patient encounter [facility] Work Phone: Start: 05-22-2020 Patient encounter procedure Misha Rodriguez PT [facility] [place] Work Phone: Start: 05-17-2020 Patient encounter procedure Misha Newsomet PT [facility] [place] Work Phone: Start: 05-15-2020 Patient encounter procedure Misha Newsomet PT [facility] [place] Work Phone: Start: 05-13-2020 Patient encounter procedure Misha Newsomet PT [facility] [place] Work Phone: Start: 05-10-2020 Patient encounter procedure Misha Newsomet PT [facility] [place] Work Phone: Start: 05-08-2020 Patient encounter procedure Misha Newsomet PT [facility] [place] Work Phone: Start: 05-06-2020 Patient encounter procedure Misha Rodriguez PT [facility] [place] Work Phone: Start: 05-03-2020 Patient encounter procedure Misha Newsomet PT [facility] [place] Work Phone: Start: 05-01-2020 Patient encounter procedure Misha Rodriguez PT [facility] [place] Work Phone: Start: 04-29-2020 Patient encounter procedure Sergio Dew [facility] [place] Work Phone: Start: 04-26-2020 Patient encounter procedure Sergio Dew [facility] [place] Work Phone: Start: 04-24-2020 Patient encounter procedure Sergio Dew [facility] [place] Work Phone: Start: 04-17-2020 Patient encounter procedure Sergio Dew [facility] [place] Work Phone: Start: 04-04-2020 Patient encounter procedure Sergio Dew [facility] [place] Work Phone: Start: 09-02-2018 End: 09-03-2018 Patient encounter procedure Frida Artis Facility:[facility] Start: 02-15-2018 End: 02-16-2018 Patient encounter procedure Mohini Oliva Facility:[facility] Start: 02-02-2018 End: 02-03-2018 Patient encounter procedure Mohini Oliva Facility:[facility] Cancer cervix - screening done Mohini Oliva [facility] [employer] Work Phone: Comment on above: 09/02/2018: Negative ; Encounter for gynecological examination (general) (routine) without abnormal findings Mohini Oliva zz DO NOT USE - [facility] Only Comment on above: 05/23/2021: Negative 09/02/2018: Negative; 06/05/2022: CoTest N [id number]/23/2021: Vvhnviwl74/14/2018: Negative; Patient encounter procedure Mohini Oliva [facility] [employer] Work Phone: Procedures Date Procedure Procedure Detail Performing Clinician Start: 02-14-2025 Serum inorganic phos phate measurement Rahat Villarreal MD Work Phone: Start: 12-07-2024 Screening mammography C luis f Villarreal MD Work Phone: Start: 10-23-2024 Liquid based cervica l cytology screening Rahat Villarreal MD Work Phone: Comment on above: NEGATIVE FOR INTRAEP ITHELIAL LESION OR MALIGNANCY. This liquid based Th inPrep(R) pap test was screened withthe use of an image guided system. Start: 09-09-2023 Pelvic echography Start: 09-09-2023 Transvaginal echography Start: 08-24-2022 Colonoscopy Yahaira potts Work Phone: Comment on above: Repeat 5 years; History of No histor y of surgery Sergio [place] No history of surgery Mohini Oliva Plan of Treatment Date Care Activity Detail Author Start: 07-21-2023 EPV, Provider: Yahaira Mixon, Status: Pen, Time: 9:00 AM EPV, Provider: Yahaira Mixon, Status: Pen, Time: 9:00 AM [facility] [facility] [address] Work Phone: Start: 05-28-2023 Patient encounter procedure ANNUAL, Provider: Frida Artis, Status: Pen, Time: 2:[address] [facility] [employer] Work Phone: Start: 05-26-2022 Patient encounter procedure ANNUAL, Provider: Frida Artis, Status: Pen, Time: 2:00 PM [place] [address] [address] Work Phone: Start: 05-23-2021 Patient encounter procedure ANNUAL, Provider: Frida Artis, Status: Pen, Time: 10:45 AM [place] [address] [address] [facility] Phone: [facility] Work Phone: NEGATED: Highlighted row has been ruled out! Planned Goals not documented [facility] Work Phone: Immunizations Immunization Date Immunization Notes Care Provider Ramila shaw 07-25-2024 influenza, seasonal, injectable, preservative free Rahat Villarreal MD Work Phone: [facility] 08-09-2023 influenza, injectabl e, quadrivalent, preservative free [facility] 05-11-2023 tetanus toxoid, redu claudia diphtheria toxoid, and acellular pertussis vaccine, adsorbed [facility] 09-16-2021 Moderna COVID-19 Vac cine 100 MCG/0.5ML Intramuscular Suspension Yahaira Mixon Work Phone: [facility] 10-14-2020 Moderna COVID-19 Vac cine 100 MCG/0.5ML Intramuscular Suspension Yahaira Mixon Work Phone: [facility] 09-17-2020 Moderna COVID-19 Vac cine 100 MCG/0.5ML Intramuscular Suspension Yahaira Mixon Work Phone: [facility] 05-23-2010 tetanus toxoid, redu claudia diphtheria toxoid, and acellular pertussis vaccine, adsorbed Yahaira Mixon Work Phone: [facility] Payers Date Payer Category Payer Self-pay 2024 Unknown [id number] [facility] [id number] 2020 Unknown [id number] 2018 Unknown 1977 Unknown [id number] 2.16.84 [id number]. 1977 Unknown [id number] 2.16.84 0.1.079912.3.579.2. 1977 Unknown [id number] 2.16.84 0.1.566239.3.579.2. 1977 Unknown [id number] 2.16.8 40.1.409539.3.579.2.9 1977 Unknown [id number] 2.16.8 [id number] 1977 Unknown [id number] 2.16. [id number] 1977 Unknown [id number] 2.16. [id number] 1977 Unknown [id number] 2.16. 840.1.056264.3.579.2.356 Unknown [id number] 2.16.8 [id number] Unknown [id number] 2.16.8 [id number] Unknown [id number] 2.16.8 [id number] Unknown [id number] 2.16.8 40.1.366048.3.579.2.462 Unknown [id number] 2.16.8 [id number] Unknown [id number] 2.16.8 [id number] Unknown [id number] 2.16.8 [id number] Social History Date Type Detail Facility Never a smoker Never a smoker [facility] [address] Work Phone: Start: 1975 Sex Assigned At Female [address] [place] Start: 09-21-2023 Tobacco smoking status SCIS Unknown if ever smoked [facility] Start: 12-13-2023 Tobacco smoking status NHIS Never smoked tobacco (finding) [facility] Start: 12-14-2024 Sex Female (finding) [facility] NEGATED: Highlighted row - - [facility] Work Phone: Functional Status Date Assessment Result Facility NEGATED: Highlighted row Functional performance Functional status health issues are not documented [facility] Work Phone: Mental Status Date Assessment Result Facility NEGATED: Highlighted row Cognitive function [Interpretation] Cognitive status health issues are not documented Disease [facility] Work Phone: Clinical Notes 08-24-2022 to 10-23-2024 Note Date & Type Note Facility 10-23-2024 Note [facility] Pap Smear Specimen Adequacy October 24, 2024 12:59am Comment . Satisfactory for evaluation. Endocervical and/or squamous metaplasticcells (endocervical component) are present. Comment on above: Satisfactory for evonne luation. Endocervical and/or squamous metaplasticcells (endocervical component) are present. 10-23-2024 Evaluation note Diagnosis Onset Date Resolution Abnormal uterine bleeding acute October 23 1:53pm Encounter for routine gynecological examination noneactive October 23 1:53pm [facility] Work Phone: 1(737) 873-548909-18-2023 NoteAccession #: [id number] Date of Procedure: 06/07/2023 Pathologist: [facility], Cytology Date Reported: 06/24/2023 Date Received: [...] This specimen has been analyzed by the lightPrep Imaging System ([employer] an automated imaging and review system, which assists the laboratory in evaluating cells on ThinPrep Pap tests. Following automated imaging, selected saucedo from every slide were reviewed by a architectural project captain and/or pathologist. Electronically Signed Out By [facility], Cytology//ELIZONDO/SLD By the signature on this report, the individual or group listed as making the Final Interpretation/Diagnosis certifies that they have reviewed this case. Diagnostic interpretation performed at [address] [place] [id number] Educational Note: Cervical cytology is a screening [...] Source of Specimen A: THINPREP PAP CERVICAL [facility] Department of Pathology [address] [place], [place] [address]Comment on above:Performed By: #### C #### [facility] Cytology [address] [place] [address] [phone] NoteHistory of Present Illness: /Lactating: Are You no Are You Currently Breastfeedingno Admission Reason: Colon cancer screening HPI: STEVEN REAL is a 47 year old Female seen [...] no jaundice Assessment and Plan: Assessment: Ms. Real is a 47-year-old female with family history [...] Completion Last Updated: 24-Aug-2022 07:40 by Connie Etienne)[facility] Evaluation noteNo assessment information availableWCenterville Work Phone: Evaluation note* Diagnosis Onset Date Resolution Status Abnormal uterine bleeding ac [facility] Work Phone: History of Present illness NarrativePresents for annual exam. She voices no complaints and is doing well. Denies any bowel or bladder problems. Denies any breast problems.[address] Work Phone: History of Present illness NarrativePresents for annual exam. She voices no complaints and is doing well. Denies any bowel or bladder problems. Denies any breast problems. She is doing well on the control pills.[address] Work Phone: History of Present illness Narrative* 47 year old female here to establish care. She has no concerns today. Previous patient of Mohini Oliva CNP * Social Hx: * Tobacco: Denies * ETOH: * Caffeine: coffee * Health maintenance: * Wellness labs: needs * Pap: gets done yearly with Dr. Artis * Mammogram: May 2022 * Colon cancer screen: needs; has family history of colon cancer in paternal grandmother [facility] [address] Work Phone: History of Present illness NarrativePresents for annual exam. She voices no complaints and is doing well. Denies any bowel or bladder problems. Denies any breast problems. She is doing well on the control pills.[address] Work Phone: Instructions* Name Dates Details Instructions not documented [facility]: Instructions* Name Dates Details Instructions not documented [facility] Work Phone: Instructions* Name Dates Details Instructions not documented [facility] Work Phone: Reason for referral (narrative)No reason for referral information availableLake[facility] Work Phone: Summary Purpose Family History Grandparent Name Dates Details Family history of [...] history of hyperlipid emia: Father(V18.19, Z83.438) Status:Active Relationship Condition Age at Onset Recorded Date/T gera grandmother Malignant neoplasm of colon Unknown father Hypertension Unknown mother Myocardial infarction Unknown Disorder of thyroid Unknown Advance Directives No Advanced Directives Records FoundNo [...] AND HAS NO CONCERNS AT THIS TIME. Chief Complaint and Reason for Visit Chief Complaint AUB Chief Complaint AUB breakthrough bleeding,*ok per SM* EMB Reason for Visit Abnormal uterine ble eding Chief Complaint Admit Date Annual ([employer]) October 23, 2024 1 :53pm SCREENING December 07, 2024 7:0 2am Reason for Visit Admit Date Abnormal uterine bleeding October 23, 2024 1:53pm Encounter for routine gynecological exam ination October 23, 2024 1:53pm Chief Complaint Admit Date Annual ([employer]) October 23, 2024 1 :53pm SCREENING December 07, 2024 7:0 2am E ORDER February 14, 2025 7:56a m [employer] February 14, 2025 7:59a m Additional Source Comments INFORMATION SOURCE (unrecogn ized section and content) DATE CREATED AUTHOR 09/10/2018 [facility] DATE CREATED AUTHOR AUTHOR'S ORGANIZ ATION 09/12/2018 [facility]erg[facility] with [facility] DATE CREATED AUTHOR AUTHOR'S ORGANIZ ATION 12/23/2022 Merged with [facility] DATE CREATED AUTHOR AUTHOR'S ORGANIZ ATION 06/07/2023 [employer] DATE CREATED AUTHOR AUTHOR'S ORGANIZ ATION 06/27/2023 [facility] DATE CREATED AUTHOR AUTHOR'S ORGANIZ ATION 02/16/2025 [facility] Care Teams (unrecognized sec tion and content) Team Status: Active Member Role Status Dates No Primary Care Physician Primary Care Provider Active Team Status: Inactive Member Role Status Dates Dr. Gay Mcfarlane MD Attending Provider, Referr ing Provider Active No Primary Care Physician Primary Care Provider Active Team Status: Inactive Member Role Status Dates No Primary Care Physician Primary Care Provider Active Dr. Gay Mcfarlane MD Attending Provider, Referr ing Provider Active Team Status: Active Member Role Status Dates Dr. Gay Mcfarlane MD Attending Provider, Referr ing Provider Active No Primary Care Physician Primary Care Provider Active Team Status: Inactive Member Role Status Dates Dr. Gay Mcfarlane MD Attending Provider Active No Primary Care Physician Primary Care Provider, Refer ring Provider Active Team Status: Active Member Role Status Daly Villarreal MD Primary Care Provider Active Team Status: Inactive Member Role Status Daly Villarreal MD Primary Care Provider Active St art: October 23, 2024 End: October 23, 2024 Rahat Villarreal MD Referring Provider Active Start : October 23, 2024 End: October 23, 2024 Dr. Gay Mcfarlane MD Attending Provider Active Start: October 23, 2024 End: October 23, 2024 Team Status: Inactive Member Role Status Daly Villarreal MD Primary Care Provider Active St art: October 23, 2024 End: October 23, 2024 Dr. Gay Mcfarlane MD Attending Provider Active Start: October 23, 2024 End: October 23, 2024 Dr. Gay Mcfarlane MD Referring Provider Active Start: October 23, 2024 End: October 23, 2024 Team Status: Inactive Member Role Status Daly Villarreal MD Primary Care Provider Active St art: December 07, 2024 End: December 07, 2024 Dr. Gay Mcfarlane MD Attending Provider Active Start: December 07, 2024 End: December 07, 2024 Dr. Gay Mcfarlane MD Referring Provider Active Start: December 07, 2024 End: December 07, 2024 Team Status: Inactive Member Role Status Daly Villarreal MD Primary Care Provider Active St art: February 14, 2025 End: February 14, 2025 Rahat Villarreal MD Attending Provider Active Start : February 14, 2025 End: February 14, 2025 Rahat Villarreal MD Referring Provider Active Start : February 14, 2025 End: February 14, 2025 Team Status: Active Member Role Status Daly Villarreal MD Primary Care Provider Active St art: February 14, 2025 Health Risk Assessment Attending Provider Active Start: February 14, 2025 Health Risk Assessment Referring Provider Active Start: February 14, 2025 Goals (unrecognized section and content) Goals may be documented in a n alternate sectionGoals may be documented in an alternate sectionGoals may be documented in an alternate sectionGoals may be documented in an alternate sectionGoals may be documented in an alternate section FOR RECORDS PERTAINING TO PATIENTS WHO ARE [...] BE BASED ON THE PRIMARY CLINICAL RECORDS. [facility] [employer] [facility]. provides no warranty or guarantee of the accuracy or completeness of information in this document.
== END 2025-02-20 23:59 | disposition home or self-care (01) ==
PROVIDERS: PCP Family Medicine; Referring Provider Family Medicine; Visit Provider Family Medicine
DX: R53.83 Other fatigue (principal)
CPT/HCPCS: 36415; 82533